=== PATIENT | male | born 1960 | race Caucasian/White ===

== ENCOUNTER 2022-04-05 17:38 | Inpatient (IN) | payer OTHER ==
[~2022-04-05] VITALS: Ht 165.1 cm; Wt 72.3 kg
--- NOTE | 2022-04-05 18:13 | Progress Note ---
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 He is in a clinical trial at [facility] involving immunotherapy, Pembrolizumab. He has been having fevers. No infectious source was identified during the initial workup in [place]. He was started on Cefepime and given a dose of Decadron. His blood pressure remained low at the time of my discussion with [place] [facility]. He will continue receiving IV fluids and will be started on Levophed if not improved following his 30 cc/kg fluid bolus. He has a port in place. TeleICU will be consulted. A baseline cortisol level was obtained and we will obtain an 8 am level. We will continue stress dose steroids if needed. There is a risk of both adrenal insufficiency and septic shock associated with Pembrolizumab. Admission to [facility] was unsuccessful due to no bed availability. He will be admitted to the ICU on IV fluids, antibiotics, +/- pressors and steroids. RUDY STREET MD Apr 05, 2022 18:13
[2022-04-05] MEDS ORDERED: ONDANSETRON 4 MG (ZOFRAN) ORAL DISSOLVE TAB PO PRN (20:00)
[2022-04-05] MEDS ORDERED: CEFEPIME INJECTION 1,000 MG in NS (IVPB) 50 ML IV SCH (20:00)
[2022-04-05] MEDS ORDERED: CALCIUM CARBONATE 500 MG (TUMS) TAB.CHEW PO PRN (20:00)
[2022-04-05] MEDS ORDERED: LACTULOSE SYRUP 10GM/15ML (ENULOSE) 30ML UDC PO PRN (20:00)
[2022-04-05] MEDS ORDERED: BISACODYL 10 MG SUPP (DULCOLAX) PR PRN (20:00)
[2022-04-05] MEDS ORDERED: ONDANSETRON 4 MG/2 ML (SDV) Z0FRAN IV PRN (20:00)
[2022-04-05] MEDS ORDERED: NS IV 500 ML 500 ML IV PRN (20:00)
[2022-04-05] MEDS ORDERED: diphenhydrAMINE 50 MG/ML INJ (BENADRYL) IVP PRN (20:00)
[2022-04-05] MEDS ORDERED: LACTATED RINGERS 1,000 ML IV ONE (20:00)
[2022-04-05] MEDS ORDERED: MELATONIN 3 MG TABLET PO PRN (20:00)
[2022-04-05] MEDS ORDERED: ACETAMINOPHEN 325 MG TABLET PO PRN (20:00)
[2022-04-05] MEDS ORDERED: MILK OF MAGNESIA 400 MG/5 ML 30 ML UDC PO PRN (20:00)
[2022-04-05] MEDS ORDERED: polyethylene glycoL POWDER 17 GM (MIRALAX) PACK PO PRN (20:00)
--- NOTE | 2022-04-05 20:07 | Tele-ICU Consult ---
History of Present Illness History of Present Illness Date Seen by Provider: Apr 05, 2022 Time Seen by Provider: 20:02 History of Present Illness eICU note 61 yo M, has squamous cell Ca tongue with lung metscurrently getting Pembrolizumab, Started on IVF @ 30 mL/kg, IV Cefepime, Decadron due to concerns of adrenal insuff. Came to OSH with hypotension, full code Allergies and Home Medications Allergies Coded Allergies: metformin (Verified Allergy, Unknown, 04/05/22) Review of Systems Constitutional: see HPI EENTM: see HPI Respiratory: see HPI Cardiovascular: see HPI Gastrointestinal: see HPI Genitourinary: see HPI Musculoskeletal: see HPI Skin: see HPI Psychiatric/Neurological: See HPI Focused Exam Height, Weight, BMI Height: '" Weight: lbs. oz. kg; BMI Method: Respiratory: Lungs Clear Exam Exam Patient acknowledged, consented, and participated in this virtual visit which was conducted using real time audio/video Vital Signs Date Time Temp Pulse Resp B/P (MAP) Pulse Ox O2 Delivery O2 Flow Rate FiO2 04/05/22 19:51 96 Trach Collar 28 Height & Weight Height: '" Weight: lbs. oz. kg; BMI Method: General Appearance: No Apparent Distress, WD/WN Neck: Other (has trach done, Sep 2021, site looks ok ) Respiratory: Lungs Clear Cardiovascular: Regular Rate, Rhythm Gastrointestinal: normal bowel sounds, non tender, soft Extremity: No Pedal Edema Neurologic/Psychiatric: Alert, Oriented x3 Assessment/Plan Assessment/Plan Responded to IVF with SBP 120's, awake and alert, not in resp distress for now continue abx, check cortisol level, not needing pressors at present time. full code Critical Care: Critically Ill Patient Time spent with patient (mins): 30 ALESSANDRO MANN MD Apr 05, 2022 20:07
[2022-04-05] MEDS: LACTATED RINGERS 1,000 ML IV SCH (20:13)
[2022-04-05 20:16] VITALS: BP 131/76
[2022-04-05] MEDS ORDERED: RT-ALBUTEROL/IPRATROPIUM 3 ML (DUONEB) VIAL INH PRN (20:30)
[2022-04-05] MEDS ORDERED: CEFEPIME 1 GM/10 ML (MAXIPIME) VIAL ONE (21:17)
[2022-04-05] MEDS ORDERED: NS (IVPB) 50 ML ONE (21:17)
[2022-04-05] MEDS: DOCUSATE SODIUM 100 MG (COLACE) CAP PO SCH (21:30)
[2022-04-05] MEDS: SENNOSIDES 8.6 MG (SENOKOT) TAB PO SCH (21:31)
[2022-04-05] MEDS ORDERED: CEFEPIME INJECTION 1,000 MG in NS (IVPB) 50 ML IV ONE (22:30)
[2022-04-06] MEDS: LACTATED RINGERS 1,000 ML IV SCH ×2 (04:36→14:23)
[2022-04-06 04:47] LABS: EOSINOPHILS % (AUTO) 0 % (0-10); LYMPHOCYTES # (AUTO) 0.4 10^3/uL (1.0-4.0); LYMPHOCYTES % (AUTO) 5 % (12-44); MEAN CORPUSCULAR VOLUME 92 fL (80-99)
[2022-04-06 04:49] LABS: BASOPHILS % (AUTO) 0 % (0-10); HEMATOCRIT 31 % (40-54); HEMOGLOBIN 10.7 g/dL (13.3-17.7); MEAN CORPUSCULAR HEMOGLOBIN 32 pg (25-34); MEAN CORPUSCULAR HGB CONC 35 g/dL (32-36); MEAN PLATELET VOLUME 10.7 fL (9.0-12.2); MONOCYTES # (AUTO) 0.3 10^3/uL (0.0-1.0); MONOCYTES % (AUTO) 4 % (0-12); NEUTROPHILS # (AUTO) 7.4 10^3/uL (1.8-7.8); NEUTROPHILS % (AUTO) 91 % (42-75); PLATELET COUNT 102 10^3/uL (130-400); WHITE BLOOD COUNT 8.1 10^3/uL (4.3-11.0)
[2022-04-06 04:59] LABS: ALBUMIN 3.2 GM/DL (3.2-4.5); POTASSIUM 4.2 MMOL/L (3.6-5.0)
[2022-04-06 05:00] LABS: CALCIUM 8.4 MG/DL (8.5-10.1)
[2022-04-06 05:03] LABS: BILIRUBIN,TOTAL 0.3 MG/DL (0.1-1.0)
[2022-04-06 05:05] LABS: CREATININE SERUM 0.72 MG/DL (0.60-1.30)
[2022-04-06 05:08] LABS: MAGNESIUM 1.9 MG/DL (1.6-2.4)
[2022-04-06] MEDS: POTASSIUM CL 10MEQ/50ML IVPB 50 ML IV SCH (05:09)
[2022-04-06] MEDS: KCL 20 MEQ TAB (K-DUR) PO SCH (05:09)
[2022-04-06] MEDS: MAGNESIUM 1 GM/100 ML IVPB 100 ML IV SCH (05:09)
[2022-04-06 05:14] LABS: BAND NEUTROPHILS 18 %; BASOPHILS % (MANUAL) 0 %; EOSINOPHILS % (MANUAL) 0 %; LYMPHOCYTES % (MANUAL) 4 %; MONOCYTES % (MANUAL) 3 %; NEUTROPHILS % (MANUAL) 74 %; REACTIVE LYMPHOCYTES 1 %; TOXIC GRANULATION/VACUOLAZATIO 1+
[2022-04-06 05:26] LABS: PHOSPHORUS 0.9 MG/DL (2.3-4.7)
[2022-04-06] MEDS: CEFEPIME INJECTION 1,000 MG in NS (IVPB) 50 ML IV SCH ×3 (06:42→18:10)
[2022-04-06] MEDS ORDERED: VANCOMYCIN INJECTION 0.1 MG in NS (IVPB) 250 ML IV SCH (07:15)
[2022-04-06] MEDS ORDERED: VANCOMYCIN 1500 MG/NS 500 ML IVPB IV SCH ×2 (08:00)
[2022-04-06] MEDS ORDERED: VANCOMYCIN 1500 MG/NS 500 ML IVPB IV NR ×2 (08:00)
[2022-04-06] MEDS: DOCUSATE SODIUM 100 MG (COLACE) CAP PO SCH ×2 (08:10→21:05)
[2022-04-06] MEDS: ENOXAPARIN 40 MG/0.4 ML (LOVENOX) SYR SC SCH (08:10)
[2022-04-06] MEDS: SENNOSIDES 8.6 MG (SENOKOT) TAB PO SCH ×2 (08:10→21:05)
[2022-04-06] MEDS ORDERED: SODIUM PHOSPHATE INJ 30 MM in NS (IVPB) 250 ML INJ ONE (09:00)
--- NOTE | 2022-04-06 09:53 | Physical Therapy Evaluation ---
PT Evaluation-General Medical Diagnosis Admission Date Apr 05, 2022 at 19:31 Medical Diagnosis: shock/hypotension Onset Date: Apr 05, 2022 Therapy Diagnosis Therapy Diagnosis: debiltiy/weakness Precautions Precautions/Isolations: Standard Precautions Referral Physician: Cammy Reason for Referral: Evaluation/Treatment Medical History Additional Medical History metastatic tongue cancer with mets to lung Current History transfer from OSH due to hypotension Reviewed History: Yes Social History Home: Single Level Prior Prior Level of Function SCALE: Activities may be completed with or without assistive devices. 9-Pcwdtodvyv-sjghyxj completes the activity by him/herself with no assistance from a helper. 5-Set-up or Clean-up Assistance-helper sets up or cleans up; patient completes activity. [place] assists only prior to or following the activity. 4-Supervision or Touching Assistance-helper provides verbal cues and/or touching/steadying and/or contact guard assistance as patient completes activity. Assistance may be provided throughout the activity or intermittently. 3-Partial/Moderate Assistance-helper does LESS THAN HALF the effort. Garwood li fts, holds or supports trunk or limbs, but provides less than half the effort. 2-Substantial/Maximal Assistance-helper does MORE THAN HALF the effort. [place] lifts or holds trunk or limbs and provides more than half the effort. 6-Saeyrleyy-odmxkb does ALL the effort. Patient does none of the effort to complete the activity. Or, the assistance of 2 or more helpers is required for the patient to complete the activity. If activity was not attempted, code reason: 7-Patient Refused. 9-Not Applicable-not attempted and the patient did not perform the activity before the current illness, exacerbation or injury. 10-Not Attempted due to Environmental Limitations-(lack of equipment, weather restraints, etc.). 88-Not Attempted due to Medical Conditions or Safety Concerns. Bed Mobility: 6 Transfers (B,C,W/C): 6 Gait: 6 Stairs: 6 Indoor Mobility (Ambulation): Independent Stairs: Independent Prior Devices Use: None PT Evaluation-Current Subjective Patient agrees to PT. Pain Numeric Pain Scale: 0-No Pain Location: No Pain Reported Objective Patient Orientation: Normal For Age Attachments: PEG Tube trach ROM/Strength ROM Lower Extremities bilateral LE WFL Strength Lower Extremities 5/5 grossly bilateral LE Integumentary/Posture Integumentary refer to nursing notes Bowel Incontinence: No Bladder Incontinence: No Posture WFL Neuromuscular (Tone, Coordination, Reflexes) grossly intact Sensory Vision: Wears Glasses Hearing: Functional Transfers Sit to Lying (QC): 6 Lying to Sitting/Side of Bed(Q: 6 Sit to Stand (QC): 6 Chair/Mlf-gu-Fufuz Xfer(QC): 6 Gait Mode of Locomotion: Walk Anticipated Mode of Locomotion: Walk Walk 10 feet (QC): 6 Walk 50 ft with 2 Turns(QC): 6 Walk 150 ft (QC): 6 Distance: 500' Gait Assistive Device: None Comments/Gait Description safe and functional with no deviation Balance Sitting Static: Normal Sitting Dynamic: Normal Standing Static: Normal Standing Dynamic: Normal Picking up an Object (QC): 6 Assessment/Needs 61 y.o. male, is at independent OF safely and does not require skilled PT. Rehab Potential: Fair PT Plan Treatment/Plan Treatment Plan: Discontinue PT, goals met Treatment Duration: Apr 06, 2022 Frequency: 1 time per week Estimated Hrs Per Day: .25 hour per day Patient and/or Family Agrees t: Yes Time/GCodes Time In: 746 Time Out: 800 Total Billed Treatment Time: 14 Total Billed Treatment 1 visit EVMod 14 min MARIO ALBERTO LYNN PT Apr 06, 2022 09:53
--- NOTE | 2022-04-06 09:58 | Tele-ICU Progress Note ---
Subjective Date Seen by a Provider: Apr 06, 2022 Time Seen by a Provider: 09:57 Subjective/Events-last exam (Tele-ICU Physician , Progress Note ) Available chart/ vitals / labs / Images reviewed Video assessment done using teleICU camera, rest of exam as per RN Discussed with RN Events overnight : Afebrile hemodynamically stable Respiratory - trach 28 I/O = Drips: lr 125 Pressors- no Consultants: Hospital course: A/P Hypotension -Infection source is not immediately obvious, PCT is high- PICC line ? , PNA ? 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 - s/p trach - on hymidification at night and RA day time - s/p PEG - as per patient : trying to eat solod foor - will keep TF and check with [facility] - might need speach eval Hyperglycemia - ? steroids related - follow Lines : Left PICC - chronic , (Central Line Necessity Reviewed) Mercedes: void OG: Nutrition: PEG Analgesia: Anxiety/ delirium VTE Prophylaxis: jayjay 40 Stress Ulcer Prophylaxis: po Plans in collaboration with bedside consultants and IM MDs. Discussed with RN to reach out if any questions or concerns A total of32 minutes of critical care time was devoted to this patient today, required to treat and/or prevent further deterioration of critical care condition ( as above ) . Sepsis Event Evaluation Height, Weight, BMI Height: '" Weight: lbs. oz. kg; 27.47 BMI Method: Exam Exam Patient acknowledged, consented, and participated in this virtual visit which was conducted using real time audio/video Vital Signs Date Time Temp Pulse Resp B/P (MAP) Pulse Ox O2 Delivery O2 Flow Rate FiO2 04/06/22 09:08 95 Room Air 04/06/22 09:00 50 21 89/50 96 Trach Collar 28.00 04/06/22 08:00 53 21 118/47 96 Trach Collar 28.00 04/06/22 07:45 Room Air 04/06/22 07:27 36.5 04/06/22 07:00 51 04/06/22 07:00 52 21 113/67 96 Trach Collar 28.00 04/06/22 06:00 45 21 100/63 95 Trach Collar 28.00 04/06/22 05:00 45 20 105/61 96 Trach Collar 28.00 04/06/22 04:00 43 19 90/60 96 Trach Collar 28.00 04/06/22 04:00 95 Trach Collar 28 04/06/22 03:43 36.2 04/06/22 03:00 46 19 97/62 97 Trach Collar 28.00 04/06/22 02:30 47 20 110/58 95 Trach Collar 28.00 04/06/22 01:00 48 23 100/56 97 Trach Collar 28.00 04/06/22 01:00 48 04/06/22 00:00 43 20 100/60 95 Trach Collar 28.00 04/05/22 23:59 95 Trach Collar 28 04/05/22 23:58 36.0 04/05/22 23:00 49 17 113/63 96 Trach Collar 28.00 04/05/22 22:00 49 17 100/70 91 Trach Collar 28.00 04/05/22 21:00 47 20 112/64 91 Trach Collar 28.00 04/05/22 20:45 49 22 113/68 91 Trach Collar 28.00 04/05/22 20:30 48 23 106/70 95 Trach Collar 28.00 04/05/22 20:16 59 96 04/05/22 20:15 52 10 109/68 98 Trach Collar 28.00 04/05/22 20:00 45 122/71 96 Trach Collar 28.00 04/05/22 20:00 96 Trach Collar 28 04/05/22 19:51 96 Trach Collar 28 04/05/22 19:45 36.3 54 116/65 93 Trach Collar 28.00 04/05/22 19:36 56 I & O 04/06/22 07:00 Intake Total 700 ml Output Total 1850 ml Balance -1150 ml Height & Weight Height: '" Weight: lbs. oz. kg; 27.47 BMI Method: General Appearance: No Apparent Distress, WD/WN Neck: Other (has trach done, Sep 2021, site looks ok ) Respiratory: Lungs Clear Cardiovascular: Regular Rate, Rhythm Gastrointestinal: normal bowel sounds, non tender, soft Extremity: No Pedal Edema Neurologic/Psychiatric: Alert, Oriented x3 Results Lab Laboratory Tests 04/06/22 04:40 Assessment/Plan Assessment/Plan 1 NATE BELTRAN MD Apr 06, 2022 09:58
[2022-04-06] MEDS ORDERED: VITA100033 PO (11:36)
[2022-04-06] MEDS ORDERED: LYSI500T37 PO (11:36)
[2022-04-06] MEDS ORDERED: NF-PILO5T PO (11:36)
[2022-04-06] MEDS ORDERED: PNT400TCR PO (11:36)
[2022-04-06] MEDS ORDERED: AMLO-250 PO (11:36)
[2022-04-06] MEDS ORDERED: ONDA8TAB13 PO (11:36)
[2022-04-06] MEDS ORDERED: GABA300C PO (11:36)
[2022-04-06] MEDS ORDERED: CINN500C2 PO (11:36)
[2022-04-06] MEDS ORDERED: FAMO40TA6 PO (11:36)
--- NOTE | 2022-04-06 11:42 | Occ Therapy Progress Note ---
Therapy Progress Note OT orders received and chart was reviewed. Patient reports he already walked 500 feet without any AD. Per PT note, this is accurate. Pt denies any concerns in self cares at this time, RN in agreement. OT will discharge. 1 visit Guerline Yanez OT Apr 06, 2022 11:42
--- NOTE | 2022-04-06 12:40 | ST Dysphagia Evaluation ---
Speech Evaluation-General Medical Diagnosis Shock/Hypotension Onset Date: Apr 05, 2022 Therapy Diagnosis Therapy Diagnosis: Suspected Pharyngeal Dysphagia Precautions Precautions: Aspiration Precautions/Isolations: Aspiration, Standard Precautions Referral Referring Physician: Dr. 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 The patient has undergone a chest exam, however, the results are not available at this time. Reviewed History: Yes Speech PLF/Current-Dysphagia Prior Level of Function The patient shared extensive oropharyngeal swallowing history with the clinician prior to the clinical bedside swallowing evaluation. The patient has completed "multiple swallow studies" with the department of otolaryngology at the [facility] throughout his treatment course. The patient is knowledgeable about the importance of dysphagia therapy throughout and following his radiation treatment and stated, "I haven't really done them in awhile but I do know if I don't use them, I lose them." The clinician encouraged a return to the consistent practice of dysphagia exercises. The patient stated he consumes "mostly regular things" with thin liquid and only uses his PEG tube for medication administration "and not all the time." The patient reports consistent coughing following thin liquids but denied s/s of suspected aspiration with puree or solid consistencies. The patient denied frequent chest infections, including pneumonia. The patient has a [place] Speaking Valve present which he located and placed on his tracheostomy at the clinician's request. The patient's SpO2% prior to PMV placement was 99%. Following placement and throughout the treatment session, the patient's SpO2% remained at 96%. The patient reported respiratory comfort with the PMV in place and demonstrated how to remove the device independently during periods of respiratory distress or discomfort. The clinician recommended the patient remove the device during periods of rest or sleep. The RN was made aware that the PMV was in place. The patient has a XLT, 6.0, uncuffed, tracheostomy in place. Subjective The patient was seated upright in the recliner, awake and alert upon entrance to his room by the clinician. The patient greeted the clinician appropriately and was agreeable to participation in the clinical bedside swallowing evaluation. Cognitive Status Patient Orientation: Person, Place, Time, Situation Oral Motor Skills Dentition: Natural Ability to Follow Directions: Excellent Oral Expression Ability: No Impairment Tracheostomy Type: Uncuffed (XLT, 6.0), Speaking Valve Other Contributing Factors: Radiation Therapy (Previous.), Chemotherapy (Previous.), PEG Tube Voice Voice Phonatory-Based Quality: Normal (with PMV in place.) Voice Pitch: Normal (with PMV in place.) Voice Loudness: Normal (with PMV in place.) Face Facial Symmetry: Symmetrical Oral-Facial Assessment Oral-Facial Dentition: Normal Labial Seal Description: Normal Smile: Normal Puff Cheeks: Normal Lingual Protrusion: Normal Lingual ROM: Normal Lingual Strength: Normal Volitional Dry Swallow: Yes Voluntary Cough: Yes Can Clear Throat Volitionally: Yes Productive Cough: Yes Productive Throat Clear: Yes Dysphagia Evaluation Consistencies Presented: Regular, Thin Liquid, [place] Thick Liquid, Pureed The patient did not display oral deficits to the swallowing mechanism at this time. Pharyngeal Phase: Clears Throat Laryngeal elevation was present to palpation and visualized through elevation of the tracheostomy. The patient was provided thin liquid via straw, nectar-thick liquid via straw, puree and solid consistencies. No s/s of suspected aspiration were demonstrated with puree or solid consistencies. Following each swallow the patient's vocal quality remained clear. Consistently following thin liquid and nectar-thick liquid, the patient demonstrated a rigorous cough or a delayed throat clear, red face, and watery eyes. The patient stated, "It just feels like something is stuck back that, like I need to clear it." Dietary Recommendations: NPO Liquid Recommendations: NPO Recommendations: - N.P.O. - Frequent and excellent oral care to reduce the transfer of oral bacteria to the lungs should aspiration of secretions occur. - Continue dysphagia exercises as recommended by the previous speech language pathologist. - Completion of a modified barium swallow evaluation to assess for the presence of aspiration with P.O. consistencies. (scheduled on this date at 1315). The results and recommendations were discussed with the patient and the patient's RN immediately following completion. The patient verbalized comprehension of the material and was agreeable with the plan of care. Dysphagia Evaluation Summary The patient demonstrated suspected pharyngeal dysphagia characterized by reduced airway protection in the presence of bolus material. Speech Short Term Goals Short Term Goals Short Term Goals 1. The patient and staff will follow safe swallowing strategies with 90% accuracy, independently. Time Frame-STG: Three Days. Speech Intermediate Goals Intermediate Goals 1. The patient will tolerate the least restrictive diet without s/s of suspected aspiration.. 2. The patient will participate in a modified barium swallow evaluation. Time Frame: One Week. Speech-Plan Treatment Plan Speech Therapy Treatment Plan: Continue Plan of Care Treatment Duration: Apr 13, 2022 Frequency: 3 times per week Estimated Hrs Per Day: .25 hour per day Rehab Potential: Fair Pt/Family Agrees to Plan: Yes Safety Risks/Education Teaching Recipient: Patient Teaching Methods: Discussion Response to Teaching: Verbalize Understanding Education Topics Provided: Results, Recommendations, Plan of Care Time Speech Therapy Time In: 11:08 Speech Therapy Time Out: 11:38 Total Billed Time: 30 Billed Treatment Time 1, ROSIE HODGSON [facility] Apr 06, 2022 12:40
--- NOTE | 2022-04-06 13:19 | Diagnostic Imaging Report ---
INDICATION: Hypoxia. No prior studies are available for comparison. Tracheostomy tube has tip above the reese. Left chest wall Port-A-Cath tip overlying SVC right atrial junction. Lungs are clear. No infiltrates are seen. There is no effusion or pneumothorax. IMPRESSION: No acute cardiopulmonary process is detected. Dictated by: Dictated on workstation # [id number]
--- NOTE | 2022-04-06 14:01 | ST Mod Barium Swallow ---
Speech Evaluation-General Medical Diagnosis Shock/Hypotension Onset Date: Apr 05, 2022 Therapy Diagnosis Therapy Diagnosis: Pharyngeal Dysphagia Precautions Precautions: Aspiration Precautions/Isolations: Aspiration, Standard Precautions Referral Referring Physician: Dr. Chawla Reason for Referral: Evaluation/Treatment Medical History Current History Please see the clinical bedside swallowing evaluation for extensive prior and current medical history information. Reviewed History: No Speech Mod Barium Swallow Prior Level of Function Please see the clinical bedside swallowing evaluation for extensive information regarding the patient's prior and current level of function. Oral Motor Skills Dentition Natural Dentures: Full Lingual Protrusion: Normal Lingual ROM: Normal Lingual Strength: Normal Volitional Dry Swallow: Yes Voluntary Cough: Yes Can Clear Throat Volitionally: Yes Textures-Lateral View Lateral View Food Presentation: Thin Liquid via Straw, Pureed Solids, Regular Solids Oral Phase Labial Closure: No Impairment (WFL) Bolus Formation Pooling L/R: No Impairment (WFL) Bolus Formation Placement: No Impairment (WFL) Mastication Rotary Chew: Mild Impairment (Due to xerostomia.) A/P Lingual Propulsion: No Impairment (WFL) Lingual Movement: No Impairment (WFL) The patient demonstrated appropriate retrieval of bolus items from the teaspoon and straw. No anterior bolus loss was appreciated. The patient formed each bolus appropriately and demonstrated timely posterior transfer. Premature spillage of bolus material was not present. The patient demonstrated mildly prolonged mastication of dry, solid consistencies secondary to xerostomia. With a thin liquid bolus addition, the patient was able to appropriately form a bolus and transfer the bolus posterior. Pharyngeal Phase Swallow Response: No Impairment (WFL) Base of Tongue: Mild Impairment The epiglottic structure appeared edematous with minimal protrusion. Laryngeal Elevation: Moderate Impairment Vallecular Residue: Mild Pharyngeal Wall Residue: Mild (Trace.) Piriform Sinus Residue: Mild (Trace.) Aspiration Observations: None The patient demonstrated mild to moderate pharyngeal impairments throughout the evaluation. Onset of the pharyngeal swallow occurred as the head of the bolus reached the angle of the ramus of the mandible and base of tongue. Hyo-laryngeal excursion and laryngeal elevation were moderately reduced. The epiglottic structure appeared edematous with limited protrusion, most likely secondary to the patient's history of radiation treatment. Inversion of the epiglottic structure was not appreciated. Closure of the laryngeal structure appeared seco ndary to edematous laryngeal and pharyngeal material surrounding the area. Trace laryngeal penetration occurred during the swallow with thin liquids, only. A minimal tracing of penetrated material remained on the laryngeal surface of the epiglottis following the swallow, however, was ejected prior to the subsequent swallow. No laryngeal penetration occurred with puree or solid consistencies. No aspiration occurred with any consistency tested throughout the swallow study. Mildly decreased base of tongue retraction and pharyngeal contractions were present resulted in mild vallecular residue and trace posterior pharyngeal wall and pyriform sinus residue. The cricopharyngeal region displayed mildly decreased relaxation secondary to reduced hyo-laryngeal excursion, however, complete clearance of bolus material through the area was achieved. To note, the patient displayed a throat clear following completion of the study, however, no material was visualized throughout the larynx or proximal trachea with fluoroscopic view. The patient's tracheostomy was visualized throughout the modified barium swallow study. Summary/Impressions The patient displayed mild to moderate oropharyngeal dysphagia characterized by prolonged mastication, decreased hyo-laryngeal excursion, reduced laryngeal elevation, absent epiglottic inversion, decreased base of tongue retraction, and reduced pharyngeal contraction. Trace laryngeal penetration occurred during the swallow with thin liquids, only. A minimal tracing of penetrated material remained on the laryngeal surface of the epiglottis following the swallow, however, was ejected prior to the subsequent swallow. No laryngeal penetration occurred with puree or solid consistencies. No aspiration occurred with any consistency tested throughout the swallow study. Recommendations: - Dysphagia three consistency diet with thin liquids, as tolerated. - Fully upright and alert for P.O. intake. - Small, single bites and sips. - Alternate bites and sips on a 1:1 ratio. - Provide additional sauces and gravies to aid with mastication and pharyngeal clearance. - Avoid problematic consistencies. - Crush medications and place in puree for administration. - Monitor for s/s of suspected aspiration with P.O. intake. If demonstrated, con tact speech pathology. The results and recommendations were provided to the patient and the patient's RN. Utilization of the PEG tube is deferred to the patient's primary team. Speech Short Term Goals Short Term Goals Short Term Goals 1. The patient and staff will follow safe swallowing strategies with 90% accuracy, independently. Time Frame-STG: Three Days. Speech Senior Care Goals Machine Veneer Repairer Goals 1. The patient will tolerate the least restrictive diet without s/s of suspected aspiration.. 2. The patient will participate in a modified barium swallow evaluation. Time Frame: One Week. Speech-Plan Treatment Plan Speech Therapy Treatment Plan: Continue Plan of Care Treatment Duration: Apr 13, 2022 Frequency: 2 times per week Estimated Hrs Per Day: .25 hour per day Rehab Potential: Fair Safety Risks/Education Teaching Recipient: Patient Teaching Methods: Discussion Response to Teaching: Verbalize Understanding Education Topics Provided: Results, Recommendations, Plan of Care Time Speech Therapy Time In: 13:15 Speech Therapy Time Out: 13:55 Total Billed Time: 40 Billed Treatment Time 1, MOD MELISSA Granados Apr 06, 2022 14:01
[2022-04-06] MEDS: inSUlin ASPART (NovoLOG) 1 UNIT/0.01 ML (CHARGE PER UNIT) SC SCH ×3 (14:45→21:05)
--- NOTE | 2022-04-06 16:17 | Diagnostic Imaging Report ---
Indication: Dysphasia. The procedure was performed in conjunction with speech pathology. Video fluoroscopy was performed during the swallowing of barium in multiple consistencies. Patient ingested thin barium as well as puree and solid consistency. 0.9 seconds of fluoroscopic time was utilized. Oral phase was unremarkable. There was normal epiglottic tilt and laryngeal elevation. No laryngeal penetration or aspiration was observed. IMPRESSION: Normal modified barium swallow. Dictated by: Dictated on workstation # [id number]
--- NOTE | 2022-04-06 19:26 | History & Physical-Hospitalist ---
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 He was scheduled to receive IV fluids at [place] and was found to be hypotensive and was sent to the ER. He reports feeling weak. He has had fevers. He received his last dose of IV immunotherapy less than one week ago. He denies shortness of breath. He has a chronic cough. He denies chest pain. He denies abdominal pain, nausea, vomiting, and diarrhea. He denies urinary symptoms. Source: patient Exam Limitations: no limitations Date Seen 04/06/22 Time Seen by a Provider: 09:45 Attending Physician PCP Admitting Physician: Shana Street MD Attending Physician: Shana Street MD Referring Physician Date of Admission Apr 05, 2022 at 19:31 Home Medications & Allergies Home Medications Reviewed patient Home Medication Reconciliation performed by pharmacy medication reconciliations certified technician and/or nursing. Patients Allergies have been reviewed. Allergies Allergies Coded Allergies metformin (Verified Allergy, Unknown, 04/05/22) Past Mtjsuis-Rwojnh-Kxicxb Hx Patient Social History Tobacco Use?: No Current Status Advance Directives: No Communicates: Verbally Primary Language: Kittitian Preferred Spoken Language: Kittitian Is interpretation needed?: No Family Medical History No Pertinent Family Hx Review of Systems Constitutional: fever, weakness EENTM: no symptoms reported Respiratory: cough Cardiovascular: no symptoms reported Gastrointestinal: no symptoms reported Genitourinary: no symptoms reported Physical Exam Physical Exam Vital Signs Vital Signs - First Documented 04/05/22 04/05/22 04/05/22 04/05/22 19:36 19:45 19:51 20:15 Temp 36.3 Pulse 56 Resp 10 B/P (MAP) 116/65 Pulse Ox 93 O2 Delivery Trach Collar O2 Flow Rate 28.00 FiO2 28 Capillary Refill : Height, Weight, BMI Height: '" Weight: lbs. oz. kg; 27.47 BMI Method: General Appearance: No Apparent Distress, WD/WN HEENT: PERRL/EOMI, Pharynx Normal Neck: Supple, Other (tracheostomy) Respiratory: Lungs Clear, Normal Breath Sounds, No Respiratory Distress Cardiovascular: Regular Rate, Rhythm, No Edema, No Murmur Gastrointestinal: Normal Bowel Sounds, Non Tender, Soft Extremity: Normal Inspection, No Pedal Edema Neurologic/Psychiatric: Alert, Oriented x3, Normal Mood/Affect Skin: Normal Color, Warm/Dry Results Results/Procedures Labs Laboratory Tests 04/06/22 04:40 Patient resulted labs reviewed. Imaging: Reviewed Imaging Report Assessment/Plan Admission Diagnosis Septic shock Admission Status: Inpatient Order (span 2 midnights) Reason for Inpatient Admission: IV antibiotics Assessment and Plan Septic shock Gram positive cocci bacteremia TeleICU consulted Hypotensive despite 30 cc/kg fluid bolus CXR and UA negative Blood cultures with gram positive cocci, pending Started on Cefepime Add Vancomycin IV fluids Repeat cultures 48 hours after appropriate antibiotics, Sunday morning Metastatic SCC to the lung Trach dependence Clinically significant, no acute management needs Hypophosphatemia Monitor and correct as needed HTN Holding BP meds, resume if needed DVT prophylaxis: Lovenox Critical Care Critically Ill Patient Diagnosis/Problems Diagnosis/Problems (1) Septic shock Status: Acute (2) Gram-positive cocci bacteremia Status: Acute (3) Metastatic squamous cell carcinoma to lung Status: Chronic Qualifiers: Laterality: unspecified laterality Qualified Codes: C78.00 - Secondary malignant neoplasm of unspecified lung (4) Immunotherapy Status: Chronic (5) Tracheostomy dependence Status: Chronic (6) Hypophosphatemia Status: Acute (7) HTN (hypertension) Status: Acute (8) GERD (gastroesophageal reflux disease) Status: Chronic Qualifiers: Esophagitis presence: without esophagitis Qualified Codes: K21.9 - Gastro- esophageal reflux disease without esophagitis SHANA STREET MD Apr 06, 2022 19:26
[2022-04-06] MEDS: VANCOMYCIN 1250 MG/NS 250 ML IVPB IV SCH ×2 (20:19)
[2022-04-06] MEDS: ANTACID SUSP 30 ML UDC (MYLANTA) PO PRN (23:56)
[2022-04-07] MEDS: CEFEPIME INJECTION 1,000 MG in NS (IVPB) 50 ML IV SCH ×2 (00:21→06:17)
[2022-04-07] MEDS: LACTATED RINGERS 1,000 ML IV SCH ×3 (00:21→13:34)
[2022-04-07 05:13] LABS: EOSINOPHILS % (AUTO) 0 % (0-10); HEMATOCRIT 31 % (40-54)
[2022-04-07 05:15] LABS: BASOPHILS % (AUTO) 0 % (0-10); HEMOGLOBIN 10.8 g/dL (13.3-17.7); LYMPHOCYTES # (AUTO) 0.4 10^3/uL (1.0-4.0); LYMPHOCYTES % (AUTO) 7 % (12-44); MEAN CORPUSCULAR HEMOGLOBIN 32 pg (25-34); MEAN CORPUSCULAR HGB CONC 34 g/dL (32-36); MEAN CORPUSCULAR VOLUME 92 fL (80-99); MEAN PLATELET VOLUME 10.9 fL (9.0-12.2); MONOCYTES # (AUTO) 0.3 10^3/uL (0.0-1.0); MONOCYTES % (AUTO) 6 % (0-12); NEUTROPHILS % (AUTO) 85 % (42-75); PLATELET COUNT 117 10^3/uL (130-400); WHITE BLOOD COUNT 5.8 10^3/uL (4.3-11.0)
[2022-04-07 05:31] LABS: PHOSPHORUS 1.9 MG/DL (2.3-4.7)
[2022-04-07 05:33] LABS: MAGNESIUM 1.7 MG/DL (1.6-2.4)
[2022-04-07 05:52] LABS: ALBUMIN 3.3 GM/DL (3.2-4.5); BILIRUBIN,TOTAL 0.3 MG/DL (0.1-1.0); CALCIUM 8.5 MG/DL (8.5-10.1); CREATININE SERUM 0.7 MG/DL (0.60-1.30); POTASSIUM 3.8 MMOL/L (3.6-5.0)
[2022-04-07] MEDS: MAGNESIUM 1 GM/100 ML IVPB 100 ML IV SCH (06:05)
[2022-04-07] MEDS: POTASSIUM CL 10MEQ/50ML IVPB 50 ML IV SCH (06:05)
[2022-04-07] MEDS: inSUlin ASPART (NovoLOG) 1 UNIT/0.01 ML (CHARGE PER UNIT) SC SCH ×4 (06:05→20:26)
[2022-04-07] MEDS: KCL 20 MEQ TAB (K-DUR) PO SCH (06:05)
[2022-04-07] MEDS: ENOXAPARIN 40 MG/0.4 ML (LOVENOX) SYR SC SCH (08:10)
[2022-04-07] MEDS: VANCOMYCIN 1250 MG/NS 250 ML IVPB IV SCH ×2 (08:10)
[2022-04-07] MEDS: DOCUSATE SODIUM 100 MG (COLACE) CAP PO SCH (08:10)
[2022-04-07] MEDS: SENNOSIDES 8.6 MG (SENOKOT) TAB PO SCH ×2 (08:10→20:20)
[2022-04-07] MEDS ORDERED: POT PHOS/NA PHOS (K-PHOS NEUTRAL) PO NR (08:45)
[2022-04-07] MEDS: HYDROCORTISONE 20 MG (CORTEF) TAB PO SCH ×2 (08:53→14:55)
--- NOTE | 2022-04-07 09:59 | Tele-ICU Progress Note ---
Subjective Date Seen by a Provider: Apr 07, 2022 Time Seen by a Provider: 09:59 Subjective/Events-last exam (Tele-ICU Physician , Progress Note ) Available chart/ vitals / labs / Images reviewed Video assessment done using teleICU camera, rest of exam as per RN Discussed with RN Events overnight : Afebrile hemodynamically stable Respiratory - trach 28 at night, RA now I/O =even Drips: lr 125 Pressors- no (04/05) 61yM Admit from OSH with hypotension, sepsis source ??, (pt on clinical trial @ [facility] w/immunotherapy for squam cell ca of tongue with lung mets). Chronic Trach 04/06 - off pressors , nl swallo 04/07 - started on steroids A/P Hypotension -Infection source is not immediately obvious, PCT is high- PICC line ? , PNA ? -Received crystalloids for hypotension and one dose decdron 04/05 ( was on pressors on other hospital ) -cortisollevel 2.7 - started on Cortef -Broad spectrum ABX- cefepime and vanco started on 04/05 - Marcio called with positive cx this am - will repeat cx here . - peripheral and line - cxr clear Bradicardia - sinus , chronic - follow Suspected adrenal insufficience - - cortisollevel 2.7 - started on Cortef Anemia - monitror s/p PEG - Normal modified barium swallow- resume PO squamous cell carcinoma of the tongue with metastasis to the lungs - in a clinical trial at [facility] involving immunotherapy, Pembrolizumab. - s/p trach - on hymidification at night and RA day time - s/p PEG - as per patient : trying to eat solid foor - will keep TF and check with [facility] - Normal modified barium swallow- resume PO Hyperglycemia - ? steroids related - follow Elev transaminases =?mild shock liver Lines : Left PICC - chronic , (Central Line Necessity Reviewed) Mercedes: void OG: Nutrition: PEG Analgesia: Anxiety/ delirium VTE Prophylaxis: jayjay 40 Stress Ulcer Prophylaxis: po Plans in collaboration with bedside consultants and IM MDs. Discussed with RN to reach out if any questions or concerns A total of 26 minutes of critical care time was devoted to this patient today, required to treat and/or prevent further deterioration of critical care condition ( as above ) . Sepsis Event Evaluation Height, Weight, BMI Height: '" Weight: lbs. oz. kg; 27.47 BMI Method: Exam Exam Patient acknowledged, consented, and participated in this virtual visit which wa s conducted using real time audio/video Vital Signs Date Time Temp Pulse Resp B/P (MAP) Pulse Ox O2 Delivery O2 Flow Rate FiO2 04/07/22 09:00 63 18 136/77 95 Trach Collar 28.00 04/07/22 08:00 65 18 94 Trach Collar 28.00 04/07/22 08:00 37.0 04/07/22 07:00 59 04/07/22 07:00 56 26 135/73 93 Trach Collar 28.00 04/07/22 06:00 56 27 125/66 93 Trach Collar 28.00 04/07/22 05:00 55 12 121/73 95 Trach Collar 28.00 04/07/22 04:00 Room Air 04/07/22 04:00 36.2 04/07/22 04:00 51 25 114/62 90 Trach Collar 28.00 04/07/22 02:50 95 Trach Collar 6.00 28 04/07/22 02:00 55 22 122/69 96 Trach Collar 28.00 04/07/22 01:00 53 04/07/22 01:00 53 23 130/71 97 Trach Collar 28.00 04/07/22 00:00 36.0 04/07/22 00:00 55 23 128/70 95 Trach Collar 28.00 04/06/22 23:59 Room Air 04/06/22 23:00 50 26 110/61 95 Trach Collar 28.00 04/06/22 22:00 52 24 119/66 96 Trach Collar 28.00 04/06/22 21:15 99 Room Air 04/06/22 21:00 55 11 125/101 93 Trach Collar 28.00 04/06/22 20:00 44 11 140/77 93 Trach Collar 28.00 04/06/22 20:00 Room Air 04/06/22 20:00 36.3 04/06/22 19:00 53 19 144/69 98 Trach Collar 28.00 04/06/22 19:00 53 04/06/22 18:00 50 15 153/74 94 Trach Collar 28.00 04/06/22 17:00 49 24 150/82 99 Trach Collar 28.00 04/06/22 16:00 48 19 137/74 95 Trach Collar 28.00 04/06/22 15:59 Room Air 04/06/22 15:00 50 20 122/68 95 Trach Collar 28.00 04/06/22 14:00 50 18 133/67 98 Trach Collar 28.00 04/06/22 13:00 53 04/06/22 13:00 49 7 126/76 91 Trach Collar 28.00 04/06/22 12:00 Room Air 04/06/22 12:00 54 20 138/76 95 Trach Collar 28.00 04/06/22 11:51 36.4 04/06/22 11:00 53 12 121/57 97 Trach Collar 28.00 04/06/22 10:00 51 6 136/60 96 Trach Collar 28.00 I & O 04/07/22 07:00 Intake Total 2985 ml Output Total 2700 ml Balance 285 ml Height & Weight Height: '" Weight: lbs. oz. kg; 27.47 BMI Method: General Appearance: No Apparent Distress, WD/WN HEENT: PERRL/EOMI, Pharynx Normal Neck: Supple, Other (tracheostomy) Respiratory: Lungs Clear, Normal Breath Sounds, No Respiratory Distress Cardiovascular: Regular Rate, Rhythm, No Edema, No Murmur Gastrointestinal: normal bowel sounds, non tender, soft Extremity: Normal Inspection, No Pedal Edema Neurologic/Psychiatric: Alert, Oriented x3, Normal Mood/Affect Skin: Normal Color, Warm/Dry Results Lab Laboratory Tests 04/06/22 04:40 04/07/22 05:00 Assessment/Plan Assessment/Plan 1 NATE BELTRAN MD Apr 07, 2022 09:59
[2022-04-07] MEDS: ceFAZolin 2 GM IV Premixed 50 ML IV SCH ×2 (13:18→20:20)
[2022-04-07] MEDS: ANTACID SUSP 30 ML UDC (MYLANTA) PO PRN ×2 (13:44→20:20)
[2022-04-07 16:44] VITALS: BP 108/56
--- NOTE | 2022-04-07 16:49 | Progress Note - Hospitalist ---
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 He was scheduled to receive IV fluids at [place] and was found to be hypotensive and was sent to the ER. He reports feeling weak. He has had fevers. He received his last dose of IV immunotherapy less than one week ago. He denies shortness of breath. He has a chronic cough. He denies chest pain. He denies abdominal pain, nausea, vomiting, and diarrhea. He denies urinary symptoms. Subjective/Events-last exam He is feeling better. He denies pain. He denies shortness of breath. He has no complaints. Objective Exam Vital Signs Vital Signs Date Time Temp Pulse Resp B/P (MAP) Pulse Ox O2 Delivery O2 Flow Rate FiO2 04/07/22 13:38 37.5 62 18 114/58 95 Room Air 04/07/22 12:00 28.00 04/07/22 02:50 28 Capillary Refill : General Appearance: No Apparent Distress, WD/WN Respiratory: Lungs Clear, No Respiratory Distress, Other (left chest port) Cardiovascular: Regular Rate, Rhythm, No Murmur Gastrointestinal: Normal Bowel Sounds, Non Tender, Soft Extremity: Normal Inspection, No Pedal Edema Neurologic/Psychiatric: Alert, Normal Mood/Affect Skin: Normal Color, Warm/Dry Results/Procedures Lab Laboratory Tests 04/07/22 05:00 Patient resulted labs reviewed. Imaging: Reviewed Imaging Report Assessment/Plan Assessment and Plan Assess & Plan/Chief Complaint MSSA bacteremia TeleICU following Blood cultures with MSSA Repeat cultures Echo without evidence of vegetations Transition to Ancef Adrenal insufficiency Cortisol level low Begin Hydrocortisone Metastatic SCC to the lung Trach dependence Clinically significant, no acute management needs Hypophosphatemia Monitor and correct as needed HTN Holding BP meds, resume if needed DVT prophylaxis: Lovenox Septic shock, resolved Critical Care Critically Ill Patient Diagnosis/Problems Diagnosis/Problems (1) Septic shock Status: Resolved Resolution Date/Time: 04/07/22 @ 16:47 (2) MSSA bacteremia Status: Acute (3) Adrenal insufficiency due to cancer therapy Status: Acute (4) 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
[2022-04-07] MEDS ORDERED: TROUGH ORDER-PHARMACY XX NR (19:00)
[2022-04-07] MEDS: DOCUSATE SODIUM 10 MG/ML 10 ML UDC (COLACE) PEG SCH (20:20)
[2022-04-07 20:42] VITALS: BP 108/57
[2022-04-08] VITALS (8 sets, daily range): BP systolic 110–151; BP diastolic 57–73
[2022-04-08] MEDS: ceFAZolin 2 GM IV Premixed 50 ML IV SCH ×3 (04:19→20:45)
[2022-04-08] MEDS: LACTATED RINGERS 1,000 ML IV SCH ×3 (04:20→21:50)
[2022-04-08 05:14] LABS: EOSINOPHILS % (AUTO) 0 % (0-10); HEMOGLOBIN 10.3 g/dL (13.3-17.7); MEAN CORPUSCULAR VOLUME 91 fL (80-99); MONOCYTES % (AUTO) 14 % (0-12)
[2022-04-08 05:16] LABS: BASOPHILS % (AUTO) 0 % (0-10); HEMATOCRIT 30 % (40-54); LYMPHOCYTES # (AUTO) 0.5 10^3/uL (1.0-4.0); LYMPHOCYTES % (AUTO) 16 % (12-44); MEAN CORPUSCULAR HEMOGLOBIN 31 pg (25-34); MEAN CORPUSCULAR HGB CONC 35 g/dL (32-36); MEAN PLATELET VOLUME 10.8 fL (9.0-12.2); MONOCYTES # (AUTO) 0.4 10^3/uL (0.0-1.0); NEUTROPHILS # (AUTO) 1.9 10^3/uL (1.8-7.8); NEUTROPHILS % (AUTO) 65 % (42-75); PLATELET COUNT 131 10^3/uL (130-400); WHITE BLOOD COUNT 2.9 10^3/uL (4.3-11.0)
[2022-04-08 05:25] LABS: ALBUMIN 3.3 GM/DL (3.2-4.5); POTASSIUM 3.3 MMOL/L (3.6-5.0)
[2022-04-08 05:27] LABS: CALCIUM 8.1 MG/DL (8.5-10.1)
[2022-04-08 05:28] LABS: TOTAL PROTEIN 6.1 GM/DL (6.4-8.2)
[2022-04-08 05:29] LABS: BILIRUBIN,TOTAL 0.4 MG/DL (0.1-1.0)
[2022-04-08 05:31] LABS: CREATININE SERUM 0.74 MG/DL (0.60-1.30)
[2022-04-08 05:32] LABS: PHOSPHORUS 2.2 MG/DL (2.3-4.7)
[2022-04-08 05:34] LABS: MAGNESIUM 1.9 MG/DL (1.6-2.4)
[2022-04-08] MEDS: KCL 20 MEQ TAB (K-DUR) PO SCH (05:43)
[2022-04-08] MEDS: MAGNESIUM 1 GM/100 ML IVPB 100 ML IV SCH (05:43)
[2022-04-08] MEDS: inSUlin ASPART (NovoLOG) 1 UNIT/0.01 ML (CHARGE PER UNIT) SC SCH ×4 (05:43→20:46)
[2022-04-08] MEDS: POTASSIUM CL 10MEQ/50ML IVPB 50 ML IV SCH ×5 (05:43→10:23)
[2022-04-08] MEDS: SENNOSIDES 8.6 MG (SENOKOT) TAB PO SCH ×2 (07:51→20:45)
[2022-04-08] MEDS: ENOXAPARIN 40 MG/0.4 ML (LOVENOX) SYR SC SCH (07:51)
[2022-04-08] MEDS: DOCUSATE SODIUM 10 MG/ML 10 ML UDC (COLACE) PEG SCH ×2 (07:51→20:45)
[2022-04-08] MEDS: HYDROCORTISONE 20 MG (CORTEF) TAB PO SCH ×2 (08:20→15:34)
[2022-04-08] MEDS ORDERED: POT PHOS/NA PHOS (K-PHOS NEUTRAL) PO ONE (08:45)
--- NOTE | 2022-04-08 15:18 | Progress Note - Hospitalist ---
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 He was scheduled to receive IV fluids at [place] and was found to be hypotensive and was sent to the ER. He reports feeling weak. He has had fevers. He received his last dose of IV immunotherapy less than one week ago. He denies shortness of breath. He has a chronic cough. He denies chest pain. He denies abdominal pain, nausea, vomiting, and diarrhea. He denies urinary symptoms. Subjective/Events-last exam He is feeling about the same. He denies pain. He is not short of breath. He is not excited about staying in the hospital over the weekend. Objective Exam Vital Signs Vital Signs Date Time Temp Pulse Resp B/P (MAP) Pulse Ox O2 Delivery O2 Flow Rate FiO2 04/08/22 11:50 36.7 54 97 21 04/08/22 11:38 Trach Collar 04/08/22 11:33 16 151/67 (95) 04/07/22 22:10 6.00 Capillary Refill : General Appearance: No Apparent Distress, WD/WN Neck: Other (tracheostomy) Respiratory: Lungs Clear, Normal Breath Sounds, No Respiratory Distress Cardiovascular: Regular Rate, Rhythm, No Edema, No Murmur Gastrointestinal: Normal Bowel Sounds, Non Tender, Soft Extremity: Normal Inspection, No Pedal Edema Neurologic/Psychiatric: Alert, Normal Mood/Affect Skin: Normal Color, Warm/Dry Results/Procedures Lab Laboratory Tests 04/08/22 05:00 Patient resulted labs reviewed. Imaging: Reviewed Imaging Report Assessment/Plan Assessment and Plan Assess & Plan/Chief Complaint MSSA bacteremia Blood cultures with MSSA Repeat cultures positive for Staph Echo without evidence of vegetations Continue Ancef Repeat blood cultures tomorrow morning If bacteremia persists, will likely need port removed Adrenal insufficiency Cortisol level low Continue Hydrocortisone Elevated LFTs Shock liver Likely due to shock Monitor Metastatic SCC to the lung Trach dependence Clinically significant, no acute management needs Hypophosphatemia Monitor and correct as needed HTN Holding BP meds, resume if needed DVT prophylaxis: Lovenox Septic shock, resolved Diagnosis/Problems Diagnosis/Problems (1) Septic shock Status: Resolved Resolution Date/Time: 04/07/22 @ 16:47 (2) MSSA bacteremia Status: Acute (3) Adrenal insufficiency due to cancer therapy Status: Acute (4) Metastatic squamous cell carcinoma to lung Status: Chronic Qualifiers: Laterality: unspecified laterality Qualified Codes: C78.00 - Secondary malignant neoplasm of unspecified lung (5) Immunotherapy Status: Chronic (6) Tracheostomy dependence Status: Chronic (7) Hypophosphatemia Status: Acute (8) HTN (hypertension) Status: Acute (9) GERD (gastroesophageal reflux disease) Status: Chronic Qualifiers: Esophagitis presence: without esophagitis Qualified Codes: K21.9 - Gastro- esophageal reflux disease without esophagitis RUDY STREET MD Apr 08, 2022 15:18
[2022-04-08] MEDS: diphenhydrAMINE 25 MG TAB (BENADRYL) PO PRN (22:34)
[2022-04-09 03:44] VITALS: BP 103/57
[2022-04-09] MEDS: diphenhydrAMINE 25 MG TAB (BENADRYL) PO PRN ×2 (04:54→20:15)
[2022-04-09] MEDS: ceFAZolin 2 GM IV Premixed 50 ML IV SCH ×3 (04:55→20:15)
[2022-04-09 04:58] LABS: EOSINOPHILS % (AUTO) 0 % (0-10); MEAN CORPUSCULAR VOLUME 91 fL (80-99); PLATELET COUNT 133 10^3/uL (130-400)
[2022-04-09 05:00] LABS: BASOPHILS % (AUTO) 0 % (0-10); HEMATOCRIT 30 % (40-54); HEMOGLOBIN 10.2 g/dL (13.3-17.7); LYMPHOCYTES # (AUTO) 0.7 10^3/uL (1.0-4.0); LYMPHOCYTES % (AUTO) 23 % (12-44); MEAN CORPUSCULAR HEMOGLOBIN 31 pg (25-34); MEAN CORPUSCULAR HGB CONC 34 g/dL (32-36); MONOCYTES # (AUTO) 0.4 10^3/uL (0.0-1.0); MONOCYTES % (AUTO) 11 % (0-12); NEUTROPHILS # (AUTO) 1.8 10^3/uL (1.8-7.8); NEUTROPHILS % (AUTO) 58 % (42-75); WHITE BLOOD COUNT 3.2 10^3/uL (4.3-11.0)
[2022-04-09 05:14] LABS: ALBUMIN 3.1 GM/DL (3.2-4.5)
[2022-04-09 05:15] LABS: POTASSIUM 3.7 MMOL/L (3.6-5.0)
[2022-04-09 05:16] LABS: CALCIUM 8.2 MG/DL (8.5-10.1)
[2022-04-09 05:17] LABS: TOTAL PROTEIN 5.6 GM/DL (6.4-8.2)
[2022-04-09 05:19] LABS: BILIRUBIN,TOTAL 0.3 MG/DL (0.1-1.0); PHOSPHORUS 3.1 MG/DL (2.3-4.7)
[2022-04-09 05:21] LABS: CREATININE SERUM 0.68 MG/DL (0.60-1.30); MAGNESIUM 1.8 MG/DL (1.6-2.4)
[2022-04-09] MEDS: POTASSIUM CL 10MEQ/50ML IVPB 50 ML IV SCH (05:28)
[2022-04-09] MEDS: MAGNESIUM 1 GM/100 ML IVPB 100 ML IV SCH (05:29)
[2022-04-09] MEDS: KCL 20 MEQ TAB (K-DUR) PO SCH (05:30)
[2022-04-09] MEDS: inSUlin ASPART (NovoLOG) 1 UNIT/0.01 ML (CHARGE PER UNIT) SC SCH ×4 (05:30→20:16)
[2022-04-09 07:25] VITALS: BP 112/57
[2022-04-09] MEDS: ENOXAPARIN 40 MG/0.4 ML (LOVENOX) SYR SC SCH (07:46)
[2022-04-09] MEDS: DOCUSATE SODIUM 10 MG/ML 10 ML UDC (COLACE) PEG SCH ×2 (07:46→20:16)
[2022-04-09] MEDS: SENNOSIDES 8.6 MG (SENOKOT) TAB PO SCH ×2 (07:46→20:15)
[2022-04-09] MEDS: HYDROCORTISONE 20 MG (CORTEF) TAB PO SCH ×2 (07:47→14:05)
--- NOTE | 2022-04-09 11:05 | Progress Note - Hospitalist ---
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 He was scheduled to receive IV fluids at [place] and was found to be hypotensive and was sent to the ER. He reports feeling weak. He has had fevers. He received his last dose of IV immunotherapy less than one week ago. He denies shortness of breath. He has a chronic cough. He denies chest pain. He denies abdominal pain, nausea, vomiting, and diarrhea. He denies urinary symptoms. Subjective/Events-last exam He is feeling about the same. He did not sleep well last night. He denies pain. Objective Exam Vital Signs Vital Signs Date Time Temp Pulse Resp B/P (MAP) Pulse Ox O2 Delivery O2 Flow Rate FiO2 04/09/22 09:35 93 Trach Collar 0.00 04/09/22 07:25 36.8 45 16 112/57 (75) 04/08/22 11:50 21 Capillary Refill : General Appearance: No Apparent Distress, WD/WN Respiratory: Lungs Clear, No Respiratory Distress Cardiovascular: Regular Rate, Rhythm, No Murmur Gastrointestinal: Normal Bowel Sounds, Soft Extremity: Normal Inspection, No Pedal Edema Neurologic/Psychiatric: Alert, Normal Mood/Affect Skin: Normal Color, Warm/Dry Results/Procedures Lab Laboratory Tests 04/09/22 04:45 Patient resulted labs reviewed. Imaging: Reviewed Imaging Report Assessment/Plan Assessment and Plan Assess & Plan/Chief Complaint MSSA bacteremia Blood cultures with MSSA Repeat cultures positive for Staph Echo without evidence of vegetations Continue Ancef Repeat blood cultures this morning pending If bacteremia persists, will likely need port removed Adrenal insufficiency Cortisol level low Continue Hydrocortisone Elevated LFTs Shock liver Likely due to shock Hepatitis panel pending Monitor Metastatic SCC to the lung Trach dependence Clinically significant, no acute management needs Hypophosphatemia Monitor and correct as needed HTN Holding BP meds, resume if needed DVT prophylaxis: Lovenox Septic shock, resolved Diagnosis/Problems Diagnosis/Problems (1) Septic shock Status: Resolved Resolution Date/Time: 04/07/22 @ 16:47 (2) MSSA bacteremia Status: Acute (3) Adrenal insufficiency due to cancer therapy Status: Acute (4) Metastatic squamous cell carcinoma to lung Status: Chronic Qualifiers: Laterality: unspecified laterality Qualified Codes: C78.00 - Secondary malignant neoplasm of unspecified lung (5) Immunotherapy Status: Chronic (6) Tracheostomy dependence Status: Chronic (7) Hypophosphatemia Status: Acute (8) HTN (hypertension) Status: Acute (9) GERD (gastroesophageal reflux disease) Status: Chronic Qualifiers: Esophagitis presence: without esophagitis Qualified Codes: K21.9 - Gastro- esophageal reflux disease without esophagitis RUDY STREET MD Apr 09, 2022 11:05
[2022-04-09 11:16] VITALS: BP 104/55
[2022-04-09] MEDS: LACTATED RINGERS 1,000 ML IV SCH (12:15)
[2022-04-09 16:05] VITALS: BP 123/84
[2022-04-09 19:27] VITALS: BP 135/77
[2022-04-10 00:12] VITALS: BP 119/58
[2022-04-10] MEDS: diphenhydrAMINE 25 MG TAB (BENADRYL) PO PRN ×2 (03:17→20:11)
[2022-04-10] MEDS: LACTATED RINGERS 1,000 ML IV SCH ×2 (03:18→20:07)
[2022-04-10 03:25] VITALS: BP 118/57
[2022-04-10] MEDS: ceFAZolin 2 GM IV Premixed 50 ML IV SCH (04:44)
[2022-04-10 04:54] LABS: BASOPHILS % (AUTO) 1 % (0-10); EOSINOPHILS % (AUTO) 1 % (0-10); HEMATOCRIT 31 % (40-54); HEMOGLOBIN 10.6 g/dL (13.3-17.7); LYMPHOCYTES # (AUTO) 1.6 10^3/uL (1.0-4.0); LYMPHOCYTES % (AUTO) 47 % (12-44); MEAN CORPUSCULAR HEMOGLOBIN 31 pg (25-34); MEAN CORPUSCULAR HGB CONC 34 g/dL (32-36); MEAN CORPUSCULAR VOLUME 92 fL (80-99); MEAN PLATELET VOLUME 10.6 fL (9.0-12.2); MONOCYTES # (AUTO) 0.4 10^3/uL (0.0-1.0); MONOCYTES % (AUTO) 13 % (0-12); NEUTROPHILS % (AUTO) 29 % (42-75); PLATELET COUNT 154 10^3/uL (130-400); WHITE BLOOD COUNT 3.4 10^3/uL (4.3-11.0)
[2022-04-10 05:15] LABS: ALBUMIN 3.1 GM/DL (3.2-4.5)
[2022-04-10 05:16] LABS: POTASSIUM 3.4 MMOL/L (3.6-5.0)
[2022-04-10 05:17] LABS: CALCIUM 8.3 MG/DL (8.5-10.1)
[2022-04-10 05:18] LABS: TOTAL PROTEIN 5.7 GM/DL (6.4-8.2)
[2022-04-10 05:20] LABS: BILIRUBIN,TOTAL 0.4 MG/DL (0.1-1.0)
[2022-04-10 05:22] LABS: CREATININE SERUM 0.64 MG/DL (0.60-1.30); PHOSPHORUS 2.7 MG/DL (2.3-4.7)
[2022-04-10 05:24] LABS: MAGNESIUM 1.7 MG/DL (1.6-2.4)
[2022-04-10] MEDS: KCL 20 MEQ TAB (K-DUR) PO SCH (05:39)
[2022-04-10] MEDS: POTASSIUM CL 10MEQ/50ML IVPB 50 ML IV SCH ×3 (05:39→07:13)
[2022-04-10] MEDS: MAGNESIUM 1 GM/100 ML IVPB 100 ML IV SCH ×3 (05:39→07:14)
[2022-04-10] MEDS: inSUlin ASPART (NovoLOG) 1 UNIT/0.01 ML (CHARGE PER UNIT) SC SCH (05:56)
[2022-04-10 08:24] VITALS: BP 114/62
--- NOTE | 2022-04-10 08:48 | Progress Note - Hospitalist ---
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 He was scheduled to receive IV fluids at [place] and was found to be hypotensive and was sent to the ER. He reports feeling weak. He has had fevers. He received his last dose of IV immunotherapy less than one week ago. He denies shortness of breath. He has a chronic cough. He denies chest pain. He denies abdominal pain, nausea, vomiting, and diarrhea. He denies urinary symptoms. Subjective/Events-last exam Pt reports feeling ok. Would like to go home. Discussed plan for pending culture results and potential need for port removal if still positive. He is in agreement with plan. Objective Exam Vital Signs Vital Signs Date Time Temp Pulse Resp B/P (MAP) Pulse Ox O2 Delivery O2 Flow Rate FiO2 04/10/22 08:24 37.0 44 18 114/62 (79) 93 Room Air 04/09/22 18:46 0.00 04/08/22 11:50 21 Capillary Refill : General Appearance: No Apparent Distress, Chronically ill Neck: Other (trach) Respiratory: Lungs Clear, No Respiratory Distress Cardiovascular: Regular Rate, Rhythm, No Murmur Neurologic/Psychiatric: Alert, Oriented x3 Results/Procedures Lab Laboratory Tests 04/10/22 04:35 Patient resulted labs reviewed. Imaging: Reviewed Imaging Report Assessment/Plan Assessment and Plan Assess & Plan/Chief Complaint MSSA bacteremia Blood cultures with MSSA Repeat cultures positive for Staph still so cultures redrawn yesterday 04/09- those are pending Echo without evidence of vegetations Continue Ancef If bacteremia persists, will likely need port removed Adrenal insufficiency Cortisol level low Continue Hydrocortisone Elevated LFTs Shock liver trending down Hepatitis panel pending Metastatic SCC to the lung Trach dependence Clinically significant, no acute management needs Hypophosphatemia Monitor and correct as needed HTN Holding BP meds, resume if needed Bradycardia Has been stanle but add tele DVT prophylaxis: EKTA Nguyễn MD Apr 10, 2022 08:48
[2022-04-10] MEDS: SENNOSIDES 8.6 MG (SENOKOT) TAB PO SCH ×2 (09:06→20:11)
[2022-04-10] MEDS: HYDROCORTISONE 20 MG (CORTEF) TAB PO SCH ×2 (09:06→14:51)
[2022-04-10] MEDS: ENOXAPARIN 40 MG/0.4 ML (LOVENOX) SYR SC SCH (09:08)
[2022-04-10] MEDS: DOCUSATE SODIUM 10 MG/ML 10 ML UDC (COLACE) PEG SCH ×2 (09:08→20:10)
[2022-04-10 11:46] VITALS: BP 102/65
[2022-04-10] MEDS ORDERED: ceFAZolin INJECTION 2,000 MG in NS (IVPB) 50 ML IV SCH (13:00)
[2022-04-10] MEDS ORDERED: ceFAZolin INJECTION 2,000 MG VIAL IV SCH (13:00)
[2022-04-10] MEDS ORDERED: NS (IVPB) 50 ML ONE (13:18)
[2022-04-10] MEDS: ceFAZolin INJECTION 2,000 MG in NS (IVPB) 50 ML IV SCH ×2 (13:21→20:10)
[2022-04-10 13:51] LABS: HEPATITIS C ANTIBODY C Non-Reactive (Non-Reactive)
[2022-04-10 17:00] VITALS: BP 126/62
[2022-04-10 20:52] VITALS: BP 114/65
[2022-04-11] VITALS (7 sets, daily range): BP systolic 115–146; BP diastolic 63–70
[2022-04-11] MEDS: ceFAZolin INJECTION 2,000 MG in NS (IVPB) 50 ML IV SCH ×3 (04:58→20:47)
[2022-04-11 05:41] LABS: BASOPHILS % (AUTO) 1 % (0-10); EOSINOPHILS % (AUTO) 1 % (0-10); HEMATOCRIT 33 % (40-54); LYMPHOCYTES # (AUTO) 2.9 10^3/uL (1.0-4.0); LYMPHOCYTES % (AUTO) 63 % (12-44); MEAN CORPUSCULAR HEMOGLOBIN 31 pg (25-34); MEAN CORPUSCULAR HGB CONC 34 g/dL (32-36); MEAN CORPUSCULAR VOLUME 92 fL (80-99); MEAN PLATELET VOLUME 11.1 fL (9.0-12.2); MONOCYTES # (AUTO) 0.4 10^3/uL (0.0-1.0); MONOCYTES % (AUTO) 9 % (0-12); NEUTROPHILS # (AUTO) 0.9 10^3/uL (1.8-7.8); NEUTROPHILS % (AUTO) 20 % (42-75); PLATELET COUNT 181 10^3/uL (130-400); WHITE BLOOD COUNT 4.6 10^3/uL (4.3-11.0)
[2022-04-11 05:52] LABS: ALBUMIN 3.2 GM/DL (3.2-4.5)
[2022-04-11 05:53] LABS: POTASSIUM 3.7 MMOL/L (3.6-5.0)
[2022-04-11 05:54] LABS: CALCIUM 8.5 MG/DL (8.5-10.1)
[2022-04-11 05:57] LABS: BILIRUBIN,TOTAL 0.4 MG/DL (0.1-1.0)
[2022-04-11 05:58] LABS: PHOSPHORUS 2.5 MG/DL (2.3-4.7)
[2022-04-11 05:59] LABS: CREATININE SERUM 0.59 MG/DL (0.60-1.30)
[2022-04-11 06:01] LABS: MAGNESIUM 1.9 MG/DL (1.6-2.4)
[2022-04-11] MEDS: KCL 20 MEQ TAB (K-DUR) PO SCH (07:58)
[2022-04-11] MEDS: MAGNESIUM 1 GM/100 ML IVPB 100 ML IV SCH (07:58)
[2022-04-11] MEDS: POTASSIUM CL 10MEQ/50ML IVPB 50 ML IV SCH (07:58)
--- NOTE | 2022-04-11 09:24 | Progress Note - Hospitalist ---
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 He was scheduled to receive IV fluids at [place] and was found to be hypotensive and was sent to the ER. He reports feeling weak. He has had fevers. He received his last dose of IV immunotherapy less than one week ago. He denies shortness of breath. He has a chronic cough. He denies chest pain. He denies abdominal pain, nausea, vomiting, and diarrhea. He denies urinary symptoms. Subjective/Events-last exam Patient reports feeling well has no complaints. He is hopeful for discharge. We discussed his persistently positive blood cultures. Discussed options for treatment and my recommendation for port removal he is in agreement. Objective Exam Vital Signs Vital Signs Date Time Temp Pulse Resp B/P (MAP) Pulse Ox O2 Delivery O2 Flow Rate FiO2 04/11/22 07:40 37.2 40 18 121/70 (87) 94 Room Air 04/11/22 04:10 3.00 04/08/22 11:50 21 Capillary Refill : General Appearance: No Apparent Distress, Chronically ill Neck: Other (trach) Respiratory: Lungs Clear, No Respiratory Distress Cardiovascular: Regular Rate, Rhythm, No Murmur Neurologic/Psychiatric: Alert, Oriented x3 Results/Procedures Lab Laboratory Tests 04/11/22 05:00 Patient resulted labs reviewed. Imaging: Reviewed Imaging Report Assessment/Plan Assessment and Plan Assess & Plan/Chief Complaint MSSA bacteremia Blood cultures with MSSA Repeat cultures positive still from port with GPC, continue IV abx Surgery consulted for port removal Discussed with Dr Martinez and plans for removal tomorrow Hold lovenox, NPO after midnight Echo without evidence of vegetations Continue Ancef Bradycardia Got as low as 30s overnight tele Cardiology consulted, discussed with Dr Ramierz who recommends monitoring at this point due to bacteremia but will see in consult Adrenal insufficiency Cortisol level low Continue Hydrocortisone Elevated LFTs Shock liver Continues to improve Hepatitis panel negative Metastatic SCC to the lung Trach dependence Clinically significant, no acute management needs HTN Holding BP meds, resume if needed DVT prophylaxis: Lovenox EKTA PICKARD MD Apr 11, 2022 09:24
[2022-04-11] MEDS: SENNOSIDES 8.6 MG (SENOKOT) TAB PO SCH ×2 (09:49→20:47)
[2022-04-11] MEDS: DOCUSATE SODIUM 10 MG/ML 10 ML UDC (COLACE) PEG SCH ×2 (09:49→20:47)
--- NOTE | 2022-04-11 09:49 | Consultation - Surgery ---
MAK CORRALES 04/11/22 0949: History of Present Illness History of Present Illness Patient Consulted On(cortes/time) 04/11/22 09:44 Date Seen by Provider: Apr 11, 2022 Time Seen by Provider: 09:40 History of Present Illness Pt is a 61yo male who is currently hospitalized for hypotension/bradycardia. He has PMH of SCC of the tongue which he received his last dose of immunotherapy for last week. He has had positive cultures from his port on 04/07/22 and today. Pt is trach dependent. Currently feeling well but would like to go home. Denies any nausea/vomiting, sweats/chills or abdominal pain. Allergies and Home Medications Allergies Coded Allergies: metformin (Verified Allergy, Unknown, 04/05/22) Patient Home Medication List Amlodipine Besylate (Amlodipine Besylate) 5 Mg Tablet, 5 MG PO DAILY, (Reported) Entered as Reported by: KUNAL ZACARIAS on 04/06/221135 Last Action: Reviewed Cinnamon Bark (Cinnamon) 500 Mg Capsule, 1,000 MG PO DAILY, (Reported) Entered as Reported by: KUNAL ZACARIAS on 04/06/221135 Last Action: Reviewed Famotidine (Famotidine) 40 Mg Tablet, 40 MG PO BID, (Reported) Entered as Reported by: KUNAL ZACARIAS on 04/06/221135 Last Action: Reviewed Gabapentin (Neurontin) 300 Mg Capsule, 300 MG PO Q8H, (Reported) Entered as Reported by: KUNAL ZACARIAS on 04/06/221135 Last Action: Reviewed Lysine HCl (l-Lysine) 500 Mg Tablet, 250 MG PO DAILY, (Reported) Entered as Reported by: KUNAL ZACARIAS on 04/06/221135 Last Action: Reviewed Ondansetron (Ondansetron Odt) 8 Mg Tab.rapdis, 8 MG PO Q8H PRN for NAUSE A/VOMITING-1ST LINE, (Reported) Entered as Reported by: KUNAL ZACARIAS on 04/06/221135 Last Action: Reviewed Pentoxifylline (Pentoxifylline) 400 Mg Tablet.er, 400 MG PO TIDWM, (Reported) Entered as Reported by: KUNAL ZACARIAS on 04/06/221135 Last Action: Reviewed Pilocarpine (Salagen) 5 Mg Tab, 5 MG PO TID, (Reported) Entered as Reported by: KUNAL ZACARIAS on 04/06/221135 Last Action: Reviewed Vitamin E Mixed (Vitamin E) 1,000 Unit Capsule, 1,000 UNIT PO DAILY, (Reported) Entered as Reported by: KUNAL ZACARIAS on 04/06/221135 Last Action: Reviewed Past Kogmckh-Suqgsl-Dbkuhs Hx Patient Social History Smoking Status: Never a Smoker Have you traveled recently?: No Surgeries History of Surgeries: Yes Surgeries: Tracheostomy (and L bicep surgery) Respiratory History of Respiratory Disorde: No Cardiovascular History of Cardiac Disorders: Yes Cardiac Disorders: Hypotension Neurological History of Neurological Disord: No Reproductive System HIV/AIDS: No Endocrine History of Endocrine Disorders: 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) Endocrine Disorders: Adrenal Disease HEENT History of HEENT Disorders: No Loss of Vision: Denies Cancer Cancer: Oral (SCC of tongue) Blood Transfusions History of Blood Disorders: No Family Medical History Significant Family History: No Pertinent Family Hx, Lung Disease (Lung cancer in sister) Review of Systems-General Constitutional: No chills, No diaphoresis Respiratory: No cough Cardiovascular: No chest pain Gastrointestinal: No abdominal pain, No nausea, No vomiting Psychiatric/Neurological: Denies Headache Physical Exam-General Problems Physical Exam Vital Signs Vital Signs - First Documented 04/05/22 04/05/22 04/05/22 04/05/22 19:36 19:45 19:51 20:15 Temp 36.3 Pulse 56 Resp 10 B/P (MAP) 116/65 Pulse Ox 93 O2 Delivery Trach Collar O2 Flow Rate 28.00 FiO2 28 Capillary Refill : General Appearance: WD/WN, no apparent distress HEENT: PERRL/EOMI Neck: supple Respiratory: lungs clear, normal breath sounds, no respiratory distress, no accessory muscle use Cardiovascular: no murmur, bradycardia Gastrointestinal: normal bowel sounds, non tender, soft Extremities: no pedal edema, normal capillary refill Neurologic/Psychiatric: alert, oriented x 3 Skin: normal color, warm/dry Lymphatic: no adenopathy (anterior/posterior cervical) Data Review Labs Laboratory Tests 04/11/22 05:00: White Blood Count 4.6, Red Blood Count 3.55L, Hemoglobin 11.0L, Hematocrit 33L, Mean Corpuscular Volume 92, Mean Corpuscular Hemoglobin 31, Mean Corpuscular Hemoglobin Concent 34, Red Cell Distribution Width 13.0, Platelet Count 181, Mean Platelet Volume 11.1, Immature Granulocyte % (Auto) 6, Neutrophils (%) (Auto) 20L, Lymphocytes (%) (Auto) 63H, Monocytes (%) (Auto) 9, Eosinophils (%) (Auto) 1, Basophils (%) (Auto) 1, Neutrophils # (Auto) 0.9L, Lymphocytes # (Auto) 2.9, Monocytes # (Auto) 0.4, Eosinophils # (Auto) 0.0, Basophils # (Auto) 0.0, Immature Granulocyte # (Auto) 0.3H, Sodium Level 138, Potassium Level 3.7, Chloride Level 102, Carbon Dioxide Level 24, Anion Gap 12, Blood Urea Nitrogen 7, Creatinine 0.59L, Estimat Glomerular Filtration Rate 109, BUN/Creatinine Ratio 12, Glucose Level 84, Calcium Level 8.5, Corrected Calcium 9.1, Phosphorus Level 2.5, Magnesium Level 1.9, Total Bilirubin 0.4, Aspartate Amino Transf (AST/SGOT) 96H, Alanine Aminotransferase (ALT/SGPT) 117H, Alkaline Phosphatase 169H, Total Protein 6.0L, Albumin 3.2 Microbiology 04/09/22 Blood Culture - Preliminary, Resulted No growth 04/05/22 MRSA Screen - Final, Complete MRSA not isolated Assessment/Plan Assessment/Plan Assessment/Plan MSSA bacteremia of port Blood cultures with MSSA repeat cultures positive still from port with GPC, continue IV abx Echo without evidence of vegetations Continue Ancef Discussed the port removal surgery with the patient, including risks/benefits and patient was agreeable to proceed with port removal tomorrow. Patient to be NPO and hold lovenox. 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 Pt is a 61 yo male with hx of Cancer of the tongue and being treated with Keytruda. Unfortunately, he came in sick and found to have bacteremia. He has Trach. Allergies and Home Medications Allergies Coded Allergies: metformin (Verified Allergy, Unknown, 04/05/22) Patient Home Medication List Home Medication List Reviewed: Yes Amlodipine Besylate (Amlodipine Besylate) 5 Mg Tablet, 5 MG PO DAILY, (Reported) Entered as Reported by: KUNAL ZACARIAS on 04/06/221135 Last Action: Reviewed Cinnamon Bark (Cinnamon) 500 Mg Capsule, 1,000 MG PO DAILY, (Reported) Entered as Reported by: KUNAL ZACARIAS on 04/06/221135 Last Action: Reviewed Famotidine (Famotidine) 40 Mg Tablet, 40 MG PO BID, (Reported) Entered as Reported by: KUNAL ZACARIAS on 04/06/221135 Last Action: Reviewed Gabapentin (Neurontin) 300 Mg Capsule, 300 MG PO Q8H, (Reported) Entered as Reported by: KUNAL ZACARIAS on 04/06/221135 Last Action: Reviewed Lysine HCl (l-Lysine) 500 Mg Tablet, 250 MG PO DAILY, (Reported) Entered as Reported by: KUNAL ZACARIAS on 04/06/221135 Last Action: Reviewed Ondansetron (Ondansetron Odt) 8 Mg Tab.rapdis, 8 MG PO Q8H PRN for NAUSEA/VOMITING-1ST LINE, (Reported) Entered as Reported by: KUNAL ZACARIAS on 04/06/221135 Last Action: Reviewed Pentoxifylline (Pentoxifylline) 400 Mg Tablet.er, 400 MG PO TIDWM, (Reported) Entered as Reported by: KUNAL ZACARIAS on 04/06/221135 Last Action: Reviewed Pilocarpine (Salagen) 5 Mg Tab, 5 MG PO TID, (Reported) Entered as Reported by: KUNAL ZACARIAS on 04/06/221135 Last Action: Reviewed Vitamin E Mixed (Vitamin E) 1,000 Unit Capsule, 1,000 UNIT PO DAILY, (Reported) Entered as Reported by: KUNAL ZACARIAS on 04/06/221135 Last Action: Reviewed Past Verlxrd-Ldhuda-Emxblx Hx Patient Social History Smoking Status: Never a Smoker Alcohol Use?: No Surgeries History of Surgeries: Yes Surgeries: Tracheostomy (and L bicep surgery) Respiratory History of Respiratory Disorde: No Cardiovascular History of Cardiac Disorders: Yes Cardiac Disorders: Hypotension Neurological History of Neurological Disord: No Reproductive System HIV/AIDS: No Genitourinary History of Genitourinary Disor: No Gastrointestinal History of Gastrointestinal Di: No Musculoskeletal History of Musculoskeletal Dis: No Endocrine History of Endocrine Disorders: 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) Endocrine Disorders: Adrenal Disease HEENT History of HEENT Disorders: Yes (Tongue CA, Trach) Loss of Vision: Denies Cancer History of Cancer: Yes Cancer: Oral (SCC of tongue) Psychosocial History of Psychiatric Problem: No Blood Transfusions History of Blood Disorders: No Family Medical History Significant Family History: Lung Disease (Lung cancer in sister) Review of Systems-General Constitutional: No chills, No diaphoresis; weakness EENTM: No blurred vision, No double vision, No mouth swelling, No epistaxis Respiratory: No cough, No dyspnea on exertion Cardiovascular: No chest pain, No palpitations Gastrointestinal: No abdominal pain, No nausea, No vomiting Genitourinary: No dysuria, No frequency, No hematuria Musculoskeletal: No joint pain, No joint swelling Skin: No change in color, No change in hair/nails Psychiatric/Neurological: Denies Depressed, Denies Headache Physical Exam-General Problems Physical Exam General Appearance: WD/WN, no apparent distress Eyes: Bilateral Eye PERRL, Bilateral Eye EOMI HEENT: No scleral icterus (R), No scleral icterus (L), No pale conjunctivae (R), No pale conjunctivae (L) Respiratory: lungs clear, normal breath sounds, no respiratory distress, no accessory muscle use Cardiovascular: no murmur, bradycardia Gastrointestinal: normal bowel sounds, non tender, soft Extremities: no pedal edema, normal capillary refill Neurologic/Psychiatric: alert, oriented x 3 Skin: normal color, warm/dry Lymphatic: no adenopathy (anterior/posterior cervical) Assessment/Plan Assessment/Plan Assessment/Plan MSSA bacteremia of port Blood cultures with MSSA repeat cultures positive still from port with GPC, continue IV abx Echo without evidence of vegetations Continue Ancef Discussed the port removal surgery with the patient, including risks/benefits and patient was agreeable to proceed with port removal tomorrow. Patient to be NPO after MN and hold lovenox. 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 I then reviewed and verified all information documented by the medical student and made modifications to such information, when appropriate. I personally performed a physical exam, medical decision making and then discussed any differences between the notes and made revisions as necessary to create one note. Santo Martinez , 04/11/22 , 13:56 MAK CORRALES Apr 11, 2022 09:49 SANTO MARTINEZ DO Apr 11, 2022 13:54
[2022-04-11] MEDS: ENOXAPARIN 40 MG/0.4 ML (LOVENOX) SYR SC SCH (09:50)
[2022-04-11] MEDS: HYDROCORTISONE 20 MG (CORTEF) TAB PO SCH ×2 (09:50→16:22)
[2022-04-11] MEDS: LACTATED RINGERS 1,000 ML IV SCH ×2 (09:52→22:41)
--- NOTE | 2022-04-11 12:57 | Consultation-Cardiology ---
HPI-Cardiology Cardiology Consultation: Date of Consultation 04/11/22 Date of Admission 04/05/22 Attending Physician Admitting Physician Admitting Physician: Shana Chawla MD Attending Physician: Qi Ventura MD Consulting Physician SHYLA VILLAFUERTE JR, MD HPI: Time Seen by a Provider: 12:51 Chief Complaint: REASON FOR CONSULTATION: Sinus bradycardia. I had the pleasure of seeing Sincere on the medical/surgical unit at [facility] in [place], [place] today. He has a history of squamous cell carcinoma of the tongue that has metastasized to his lung. He presented to an outside hospital with sepsis. He was subsequently transferred to our hospital for further treatment and evaluation. This ultimately diagnosed with methicillin sensitive Staphylococcus aureus bacteremia. However, during his hospitalization he has been having some intermittent bradycardia. As such, a cardiology consultation was requested. He tells me that he had similar episodes of bradycardia when he was at [facility]. It sounds like he underwent a Holter monitor which confirmed the bradycardia and he was told by cardiology at the outside facility that this would just need to be monitored. He states that if he has a coughing spell, sometimes he will get lightheaded. However, when he is breathing normally and not coughing, he denies any lightheadedness. He denies chest discomfort. He does have some dyspnea related to his tracheostomy. He denies paroxysmal nocturnal dyspnea, orthopnea, palpitations, syncope, or ankle edema. Certain portions of this document may have been dictated utilizing voice recognition technology. Inherent to this technology, typographical and grammatical errors may exist. As much as I am diligent to identify and correct these mistakes, some errors may remain in the document. Review of Systems-Cardiology Review of Systems Other comments Review of 10 organ systems is as per the history of present illness, otherwise negative. RIN-Jhppuc-Akqamr Hx Patient Social History Smoking Status: Never a Smoker Have you traveled recently?: No Past Medical History PMH As described under Assessment. Family Medical History Family Medical History: The patient does not know of any family history of premature coronary artery disease in first-degree relatives. Allergies and Home Medications Allergies Coded Allergies: metformin (Verified Allergy, Unknown, 04/05/22) Patient Home Medication List Home Medication List Reviewed: Yes Amlodipine Besylate (Amlodipine Besylate) 5 Mg Tablet, 5 MG PO DAILY, (Reported) Entered as Reported by: KUNAL ZACARIAS on 04/06/221135 Last Action: Reviewed Cinnamon Bark (Cinnamon) 500 Mg Capsule, 1,000 MG PO DAILY, (Reported) Entered as Reported by: KUNAL ZACARIAS on 04/06/221135 Last Action: Reviewed Famotidine (Famotidine) 40 Mg Tablet, 40 MG PO BID, (Reported) Entered as Reported by: KUNAL ZACARIAS on 04/06/221135 Last Action: Reviewed Gabapentin (Neurontin) 300 Mg Capsule, 300 MG PO Q8H, (Reported) Entered as Reported by: KUNAL ZACARIAS on 04/06/221135 Last Action: Reviewed Lysine HCl (l-Lysine) 500 Mg Tablet, 250 MG PO DAILY, (Reported) Entered as Reported by: KUNAL ZACARIAS on 04/06/221135 Last Action: Reviewed Ondansetron (Ondansetron Odt) 8 Mg Tab.rapdis, 8 MG PO Q8H PRN for NAUSEA/VOMITING-1ST LINE, (Reported) Entered as Reported by: KUNAL ZACARIAS on 04/06/221135 Last Action: Reviewed Pentoxifylline (Pentoxifylline) 400 Mg Tablet.er, 400 MG PO TIDWM, (Reported) Entered as Reported by: KUNAL ZACARIAS on 04/06/221135 Last Action: Reviewed Pilocarpine (Salagen) 5 Mg Tab, 5 MG PO TID, (Reported) Entered as Reported by: KUNAL ZACARIAS on 04/06/221135 Last Action: Reviewed Vitamin E Mixed (Vitamin E) 1,000 Unit Capsule, 1,000 UNIT PO DAILY, (Reported) Entered as Reported by: KUNAL ZACARIAS on 04/06/221135 Last Action: Reviewed Exam Vital Signs Vital Signs Date Time Temp Pulse Resp B/P (MAP) Pulse Ox O2 Delivery O2 Flow Rate FiO2 04/11/22 12:25 35 04/11/22 11:24 36.7 18 123/66 (85) 98 Room Air 04/11/22 04:10 3.00 04/08/22 11:50 21 Physical Exam General: Alert. No acute distress. Well nourished and appears stated age. Eye: Extraocular movements are intact. Conjunctivae are clear. There are no xanthelasma. HENT: He has a tracheostomy in place. Atraumatic. Carotid pulsations 2/2 without bruits. Neck: Jugular venous pressure does not appear elevated. No thyromegaly appreciated. Respiratory: Lungs are clear to auscultation. Respirations are non-labored. Breath sounds are equal. Symmetrical chest wall expansion. Cardiovascular: Normal rate. Regular rhythm. No murmur. No gallop. Point of maximal impulse is not appear displaced. Good pulses equal in all extremities. No edema. Gastrointestinal: Soft. Normal bowel sounds. Skin: Skin turgor is normal. There is no pallor. Musculoskeletal: No kyphosis or scoliosis appreciated. Neurologic: Alert and oriented to person, place, time. Cranial nerves 3-12 appear grossly intact. The patient has good motor tone strength in the upper and lower extremities bilaterally. Psychiatric: Cooperative. Appropriate mood & affect. Labs Laboratory Tests Test 04/11/22 05:00 Range/Units White Blood Count 4.6 4.3-11.0 10^3/uL Red Blood Count 3.55 L 4.30-5.52 10^6/uL Hemoglobin 11.0 L 13.3-17.7 g/dL Hematocrit 33 L 40-54 % Mean Corpuscular Volume 92 80-99 fL Mean Corpuscular Hemoglobin 31 25-34 pg Mean Corpuscular Hemoglobin Concent 34 32-36 g/dL Red Cell Distribution Width 13.0 10.0-14.5 % Platelet Count 181 130-400 10^3/uL Mean Platelet Volume 11.1 9.0-12.2 fL Immature Granulocyte % (Auto) 6 % Neutrophils (%) (Auto) 20 L 42-75 % Lymphocytes (%) (Auto) 63 H 12-44 % Monocytes (%) (Auto) 9 0-12 % Eosinophils (%) (Auto) 1 0-10 % Basophils (%) (Auto) 1 0-10 % Neutrophils # (Auto) 0.9 L 1.8-7.8 10^3/uL Lymphocytes # (Auto) 2.9 1.0-4.0 10^3/uL Monocytes # (Auto) 0.4 0.0-1.0 10^3/uL Eosinophils # (Auto) 0.0 0.0-0.3 10^3/uL Basophils # (Auto) 0.0 0.0-0.1 10^3/uL Immature Granulocyte # (Auto) 0.3 H 0.0-0.1 10^3/uL Sodium Level 138 135-145 MMOL/L Potassium Level 3.7 3.6-5.0 MMOL/L Chloride Level 102 98-107 MMOL/L Carbon Dioxide Level 24 21-32 MMOL/L Anion Gap 12 5-14 MMOL/L Blood Urea Nitrogen 7 7-18 MG/DL Creatinine 0.59 L 0.60-1.30 MG/DL Estimat Glomerular Filtration Rate 109 BUN/Creatinine Ratio 12 Glucose Level 84 70-105 MG/DL Calcium Level 8.5 8.5-10.1 MG/DL Corrected Calcium 9.1 8.5-10.1 MG/DL Phosphorus Level 2.5 2.3-4.7 MG/DL Magnesium Level 1.9 1.6-2.4 MG/DL Total Bilirubin 0.4 0.1-1.0 MG/DL Aspartate Amino Transf (AST/SGOT) 96 H 5-34 U/L Alanine Aminotransferase (ALT/SGPT) 117 H 0-55 U/L Alkaline Phosphatase 169 H 40-136 U/L Total Protein 6.0 L 6.4-8.2 GM/DL Albumin 3.2 3.2-4.5 GM/DL Triglycerides Level 275 H <150 MG/DL Cholesterol Level 154 < 200 MG/DL LDL Cholesterol Direct 108 1-129 MG/DL VLDL Cholesterol 55 H 5-40 MG/DL HDL Cholesterol 31 L 40-60 MG/DL Thyroid Stimulating Hormone (TSH) 15.04 H 0.35-4.94 UIU/ML Radiology ECHOCARDIOGRAM (04/07/2022): 1. This is a technically difficult study due to poor acoustic windows. 2. Left ventricle: The cavity size is normal. There is mild concentric hypertrophy. Systolic function is normal. The estimated ejection fraction is 55- 60%. Regional wall motion abnormalities cannot be excluded due to poor endocardial definition. The left ventricular diastolic function is indeterminate. 3. Left atrium: The left atrium is moderately dilated with a volume index ranging from 25-56 mL/m. 4. Aortic valve: There is mild aortic valve sclerosis. 5. Inferior vena cava: The vessel is dilated. The respirophasic diameter changes are in the normal range (greater than or equal to 50%). These findings are consistent with mildly elevated right atrial pressure (8 mmHg). 6. Pulmonary arteries: The estimated pulmonary artery systolic pressure is 42 mmHg assuming a right atrial pressure of 8 mmHg. 7. No obvious large valvular vegetations are identified. However, due to the technically difficult nature of the study, small vegetations might not be seen. Diagnosis/Problems Diagnosis/Problems (1) Sinus bradycardia Assessment & Plan: This seems to be a chronic problem for the patient. For the most part, he seems to be asymptomatic from the bradycardia. He did undergo a Holter monitor [facility] which by his report was unremarkable other than showing the bradycardia. I would just recommend avoiding any AV joy blocking agents. I do not recommend any additional cardiac testing at this time. (2) Primary hypertension Assessment & Plan: He takes amlodipine at home which is currently on hold due to low blood pressures during this admission. (3) Elevated TSH Assessment & Plan: His TSH is mildly elevated. I suspect this has nothing to do with his bradycardia but may need some additional evaluation. I will leave this up to the discretion of the hospitalist. (4) MSSA bacteremia Status: Acute Assessment & Plan: He has a tunneled catheter in place for chemotherapy which is now scheduled to be removed tomorrow. SHYLA VILLAFUERTE JR, MD Apr 11, 2022 12:57
[2022-04-12] VITALS (11 sets, daily range): BP systolic 103–152; BP diastolic 66–89
[2022-04-12] MEDS: ceFAZolin INJECTION 2,000 MG in NS (IVPB) 50 ML IV SCH ×3 (05:13→20:15)
[2022-04-12 05:58] LABS: HEMATOCRIT 33 % (40-54); HEMOGLOBIN 11.3 g/dL (13.3-17.7); MEAN CORPUSCULAR HEMOGLOBIN 31 pg (25-34); MEAN CORPUSCULAR HGB CONC 34 g/dL (32-36); MEAN CORPUSCULAR VOLUME 92 fL (80-99); MEAN PLATELET VOLUME 10.5 fL (9.0-12.2); PLATELET COUNT 207 10^3/uL (130-400)
[2022-04-12 06:21] LABS: POTASSIUM 3.7 MMOL/L (3.6-5.0)
[2022-04-12 06:22] LABS: CALCIUM 8.5 MG/DL (8.5-10.1)
[2022-04-12] MEDS: KCL 20 MEQ TAB (K-DUR) PO SCH (06:25)
[2022-04-12] MEDS: POTASSIUM CL 10MEQ/50ML IVPB 50 ML IV SCH (06:25)
[2022-04-12 06:27] LABS: CREATININE SERUM 0.66 MG/DL (0.60-1.30)
[2022-04-12 06:40] LABS: PHOSPHORUS 2.9 MG/DL (2.3-4.7)
[2022-04-12 06:43] LABS: MAGNESIUM 1.9 MG/DL (1.6-2.4)
[2022-04-12] MEDS: MAGNESIUM 1 GM/100 ML IVPB 100 ML IV SCH (06:45)
[2022-04-12] MEDS: SENNOSIDES 8.6 MG (SENOKOT) TAB PO SCH ×2 (08:11→20:14)
[2022-04-12] MEDS: DOCUSATE SODIUM 10 MG/ML 10 ML UDC (COLACE) PEG SCH ×2 (08:11→20:15)
[2022-04-12] MEDS: HYDROCORTISONE 20 MG (CORTEF) TAB PO SCH ×2 (08:11→14:04)
[2022-04-12] MEDS ORDERED: LACTATED RINGERS 1,000 ML IV PRN (09:15)
--- NOTE | 2022-04-12 09:32 | Cardiology Progress Note ---
Progress Note-Cardiology Events since last exam Date Seen by Provider: Apr 12, 2022 Time Seen by Provider: 09:32 Events since last exam I am following him due to bradycardia. His heart rate dropped into the 30s again overnight. He was asymptomatic with this. He reports that his heart rate has always run in the 50 bpm range. His tunneled infusion port will be removed later today due to the bacteremia. He denies chest discomfort, dyspnea, palpitations, syncope, or ankle edema. Certain portions of this document may have been dictated utilizing voice recognition technology. Inherent to this technology, typographical and grammatical errors may exist. As much as I am diligent to identify and correct these mistakes, some errors may remain in the document. Vitals Last set of Vitals Signs Vital Signs 04/11/22 04/12/22 04/12/22 04:10 11:17 15:57 Temp 36.8 Pulse 40 Resp 20 B/P (MAP) 131/67 (88) Pulse Ox 97 O2 Delivery Room Air O2 Flow Rate 3.00 FiO2 21 Labs Labs Laboratory Tests 04/12/22 05:48 Exam Vital Signs Vital Signs Date Time Temp Pulse Resp B/P (MAP) Pulse Ox O2 Delivery O2 Flow Rate FiO2 04/12/22 15:57 36.8 40 20 131/67 (88) 97 Room Air 04/12/22 11:17 21 04/11/22 04:10 3.00 Physical Exam General: Alert. No acute distress. Eye: No xanthelasma. HENT: Normocephalic. He has a tracheostomy in place. Neck: Jugular venous pressure does not appear elevated. Respiratory: Lungs are clear to auscultation. Respirations are non-labored. Breath sounds are equal. Symmetrical chest wall expansion. Cardiovascular: Normal rate. Regular rhythm. No murmur. No gallop. No edema. Gastrointestinal: Soft. Normal bowel sounds. Skin: Warm. Dry. Neurologic: Alert and oriented to person, place, time. Cranial nerves 3-11 grossly intact. Psychiatric: Cooperative. Appropriate mood & affect. Labs Laboratory Tests Test 04/12/22 05:48 Range/Units White Blood Count 5.0 4.3-11.0 10^3/uL Red Blood Count 3.63 L 4.30-5.52 10^6/uL Hemoglobin 11.3 L 13.3-17.7 g/dL Hematocrit 33 L 40-54 % Mean Corpuscular Volume 92 80-99 fL Mean Corpuscular Hemoglobin 31 25-34 pg Mean Corpuscular Hemoglobin Concent 34 32-36 g/dL Red Cell Distribution Width 13.0 10.0-14.5 % Platelet Count 207 130-400 10^3/uL Mean Platelet Volume 10.5 9.0-12.2 fL Sodium Level 139 135-145 MMOL/L Potassium Level 3.7 3.6-5.0 MMOL/L Chloride Level 105 98-107 MMOL/L Carbon Dioxide Level 23 21-32 MMOL/L Anion Gap 11 5-14 MMOL/L Blood Urea Nitrogen 9 7-18 MG/DL Creatinine 0.66 0.60-1.30 MG/DL Estimat Glomerular Filtration Rate 105 BUN/Creatinine Ratio 14 Glucose Level 93 70-105 MG/DL Calcium Level 8.5 8.5-10.1 MG/DL Phosphorus Level 2.9 2.3-4.7 MG/DL Magnesium Level 1.9 1.6-2.4 MG/DL Diagnosis/Problems Diagnosis/Problems (1) Sinus bradycardia Assessment & Plan: This seems to be a chronic problem for the patient. For the most part, he seems to be asymptomatic from the bradycardia. He did undergo a Holter monitor [facility] which by his report was unremarkable other than showing the bradycardia. I would just recommend avoiding any AV joy blocking agents. I do not recommend any additional cardiac testing at this time. I may consider an event monitor following discharge. (2) Primary hypertension Assessment & Plan: He takes amlodipine at home which is currently on hold due to low blood pressures during this admission. His blood pressures have started to trend upwards. We may need to restart a low dose of Amlodipine if his blood pressures remain elevated. (3) Elevated TSH Assessment & Plan: His TSH is mildly elevated. I suspect this has nothing to do with his bradycardia but may need some additional evaluation. I will leave this up to the discretion of the hospitalist. (4) MSSA bacteremia Status: Acute Assessment & Plan: He has a tunneled catheter in place for chemotherapy which is now scheduled to be removed. SHYLA VILLAFUERTE JR, MD Apr 12, 2022 09:32
--- NOTE | 2022-04-12 09:49 | Progress Note-Pre Operative ---
Pre-Operative Progress Note Date of Available H&P: Apr 11, 2022 Date H&P Reviewed: Apr 12, 2022 Time H&P Reviewed: 09:46 History & Physical: H&P Reviewed, Patient Examed, No changes noted Pre-Operative Diagnosis: Bacteremia, Venous insufficiency SANTO EATON DO Apr 12, 2022 09:49
[2022-04-12] MEDS ORDERED: LIDOCAINE/EPI 2% 1:200,00 (XYLOCAINE) 20 ML VIAL ONE (09:50)
--- NOTE | 2022-04-12 10:04 | Progress Note - Hospitalist ---
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 He was scheduled to receive IV fluids at [place] and was found to be hypotensive and was sent to the ER. He reports feeling weak. He has had fevers. He received his last dose of IV immunotherapy less than one week ago. He denies shortness of breath. He has a chronic cough. He denies chest pain. He denies abdominal pain, nausea, vomiting, and diarrhea. He denies urinary symptoms. Subjective/Events-last exam Pt reports doing ok. Plan is for port removal today. Discussed with him and his SO at bedside plan going forward. I spoke with [facility] who is in agreement with plan as stated below. Patient and SO expressed understanding. Objective Exam Vital Signs Vital Signs Date Time Temp Pulse Resp B/P (MAP) Pulse Ox O2 Delivery O2 Flow Rate FiO2 04/12/22 08:00 36.9 42 18 149/66 (93) 96 Room Air 04/11/22 04:10 3.00 04/08/22 11:50 21 Capillary Refill : General Appearance: No Apparent Distress, Chronically ill Respiratory: Lungs Clear, No Respiratory Distress Cardiovascular: Regular Rate, Rhythm, No Murmur Neurologic/Psychiatric: Alert, Oriented x3 Results/Procedures Lab Laboratory Tests 04/12/22 05:48 Patient resulted labs reviewed. Imaging: Reviewed Imaging Report Assessment/Plan Assessment and Plan Assess & Plan/Chief Complaint MSSA bacteremia Blood cultures with MSSA x2 Repeat cultures from . postive Surgery consulted for port removal today Echo without evidence of vegetations Continue Ancef Discussed with ID at [facility] (Dr Eller) and he agrees with plan to remove port and await negative blood cultures then place PICC for 4 weeks of IV abx Social work consulted for outpatient needs for home health and IV abx Bradycardia Cardiology consulted, appreciate recs Adrenal insufficiency Cortisol level low Continue Hydrocortisone Elevated LFTs Shock liver Continues to improve Hepatitis panel negative Metastatic SCC to the lung Trach dependence Clinically significant, no acute management needs HTN Holding BP meds, resume if needed DVT prophylaxis: Lovenox on hold for port removal EKTA PICKARD MD Apr 12, 2022 10:04
[2022-04-12] MEDS ORDERED: PROPOFOL INJECTION 50 ML IV ONE (10:13)
[2022-04-12] MEDS ORDERED: MIDAZOLAM 2 MG/2 ML (VERSED) VIAL ONE (10:13)
[2022-04-12] MEDS ORDERED: GLYCOPYRROLATE 0.2 MG/ML (ROBINUL) 2 ML VIAL ONE (10:30)
--- NOTE | 2022-04-12 10:51 | Progress Note-Post Operative ---
Post-Operative Progess Note Surgeon (s)/Outreach Consultant (s) Surgeon SANTO EATON DO Outreach Consultant: YUSUF Stern Pre-Operative Diagnosis Bacteremia, Venous insufficiency Post-Operative Diagnosis same Procedure & Operative Findings Date of Procedure 04/12/22 Procedure Performed/Findings PROCEDURE: Removal of port COMPLICATIONS: None. INDICATIONS: The patient is a 61 year-old male who had a port previously placed. Patient has bacteremia and needs to have port removed. The patient was explained risk and benefits of the procedure and wished to proceed with procedure. Consent was signed on the chart. PROCEDURE: The patient was taken to the operating suite and was prepped and draped in sterile fashion. A surgical pause was performed. Local anesthetic was infiltrated to the area around the port. A #15 blade scalpel was used to make an incision directly over previous incision. As I was infiltrating local it started coming out of the hole in his chest wall that I am assuming they used over and over to access the port. Cautery was used to dissect down to the port which was then grasped and then dissected around. The catheter was removed in its entirety. The catheter itself had been cut and placed backwards on the port. The port was then able to be dissected out of the pocket and elevated. The wound was then irrigated with copious amounts of irrigation. Hemostasis had been achieved. Skin was then closed using 4-0 Vicryl, 3 interrupted subcuticular stitches. The area was then washed and dried and Skin Affix placed over the incision. The patient tolerated the procedure well without complication and was taken to recovery room in stable condition. Anesthesia Type IV sedation by Anesthesia Estimated Blood Loss Estimated blood loss (mL): scant Specimens/Packing Specimens Removed coty-cath, sent to micro for culture SANTO EATON DO Apr 12, 2022 10:51
[2022-04-12] MEDS: LACTATED RINGERS 1,000 ML IV SCH (11:41)
--- NOTE | 2022-04-12 11:51 | Anesthesia-General Post-Op ---
MAC Patient Condition Mental Status/LOC: Same as Preop Cardiovascular: Satisfactory Nausea/Vomiting: Absent Respiratory: Satisfactory Pain: Controlled Complications: Absent Post Op Complications Complications None Follow Up Care/Instructions Patient Instructions None needed. Anesthesiology Discharge Order Discharge Order Patient is doing well, no complaints, stable vital signs, no apparent adverse anesthesia problems. No complications reported per nursing. VANE BRASWELL DO Apr 12, 2022 11:51
[2022-04-13] VITALS (7 sets, daily range): BP systolic 121–140; BP diastolic 50–73
[2022-04-13] MEDS: LACTATED RINGERS 1,000 ML IV SCH ×2 (00:51→14:55)
[2022-04-13] MEDS: ceFAZolin INJECTION 2,000 MG in NS (IVPB) 50 ML IV SCH ×3 (05:17→20:09)
[2022-04-13 06:11] LABS: HEMATOCRIT 35 % (40-54); HEMOGLOBIN 11.9 g/dL (13.3-17.7); MEAN CORPUSCULAR HEMOGLOBIN 32 pg (25-34); MEAN CORPUSCULAR HGB CONC 34 g/dL (32-36); MEAN CORPUSCULAR VOLUME 94 fL (80-99); MEAN PLATELET VOLUME 10.6 fL (9.0-12.2); PLATELET COUNT 251 10^3/uL (130-400); WHITE BLOOD COUNT 5.6 10^3/uL (4.3-11.0)
[2022-04-13 06:36] LABS: CALCIUM 8.9 MG/DL (8.5-10.1); CREATININE SERUM 0.72 MG/DL (0.60-1.30); POTASSIUM 3.9 MMOL/L (3.6-5.0)
[2022-04-13 06:38] LABS: PHOSPHORUS 3.1 MG/DL (2.3-4.7)
[2022-04-13] MEDS: POTASSIUM CL 10MEQ/50ML IVPB 50 ML IV SCH (06:39)
[2022-04-13] MEDS: MAGNESIUM 1 GM/100 ML IVPB 100 ML IV SCH (06:40)
[2022-04-13] MEDS: KCL 20 MEQ TAB (K-DUR) PO SCH (06:40)
[2022-04-13] MEDS: DOCUSATE SODIUM 10 MG/ML 10 ML UDC (COLACE) PEG SCH ×2 (09:41→20:09)
[2022-04-13] MEDS: SENNOSIDES 8.6 MG (SENOKOT) TAB PO SCH ×2 (09:41→20:08)
[2022-04-13] MEDS: HYDROCORTISONE 20 MG (CORTEF) TAB PO SCH ×2 (09:41→14:53)
--- NOTE | 2022-04-13 09:53 | Progress Note - Surgery ---
MAK CORRALES 04/13/22 0953: Subjective Date Seen by a Provider: Apr 13, 2022 Time Seen by a Provider: 07:45 Subjective/Events-last exam Pt feels well today following port removal surgery yesterday. He denies any nausea/vomiting, sweats/chills or pain. He says he feels like he is ready to go home. Review of Systems General: No Chills, No Night Sweats Pulmonary: No Cough Gastrointestinal: No: Nausea, Vomiting, Abdominal Pain Objective Exam Vital Signs Date Time Temp Pulse Resp B/P (MAP) Pulse Ox O2 Delivery O2 Flow Rate FiO2 04/13/22 07:58 37.6 43 16 140/70 (93) 97 Room Air 04/13/22 07:00 42 04/13/22 04:05 36.7 42 18 132/50 (77) 96 Room Air 04/13/22 01:00 38 04/13/22 00:43 36.7 41 18 125/72 (89) 94 Room Air 04/12/22 20:32 Room Air 04/12/22 19:55 36.7 46 20 145/69 (94) 96 Room Air 04/12/22 19:00 42 04/12/22 18:34 95 Room Air 04/12/22 15:57 36.8 40 20 131/67 (88) 97 Room Air 04/12/22 15:37 39 04/12/22 12:00 36.6 61 18 152/70 (97) 96 Room Air 04/12/22 11:30 36.6 20 106/70 (82) 93 Room Air 04/12/22 11:30 Room Air 04/12/22 11:20 20 110/70 (83) 93 Room Air 04/12/22 11:17 36.6 42 94 21 04/12/22 11:15 Room Air 04/12/22 11:10 20 116/75 (89) 94 Room Air 04/12/22 11:00 Room Air 04/12/22 11:00 20 112/72 (85) 94 Room Air 04/12/22 10:57 36.6 20 103/89 (94) 94 Room Air 04/12/22 10:57 Room Air I & O 04/13/22 07:00 Intake Total 1600 ml Output Total 3300 ml Balance -1700 ml Capillary Refill : Less Than 3 Seconds General Appearance: No Apparent Distress, Chronically ill HEENT: PERRL/EOMI Neck: Other (trach) Respiratory: Lungs Clear, No Respiratory Distress Cardiovascular: Regular Rate, Rhythm, No Murmur Gastrointestinal: normal bowel sounds, non tender, soft Extremity: No Pedal Edema Neurologic/Psychiatric: Alert, Oriented x3 Skin: Normal Color, Warm/Dry, Other (incision on upper chest clean dry and intact) Results Lab Laboratory Tests 04/13/22 05:40: Phosphorus Level 3.1, Magnesium Level 2.0 04/13/22 05:45: White Blood Count 5.6, Red Blood Count 3.69L, Hemoglobin 11.9L, Hematocrit 35L, Mean Corpuscular Volume 94, Mean Corpuscular Hemoglobin 32, Mean Corpuscular Hemoglobin Concent 34, Red Cell Distribution Width 13.2, Platelet Count 251, Mean Platelet Volume 10.6, Sodium Level 140, Potassium Level 3.9, Chloride Level 105, Carbon Dioxide Level 24, Anion Gap 11, Blood Urea Nitrogen 8, Creatinine 0.72, Estimat Glomerular Filtration Rate 103, BUN/Creatinine Ratio 11, Glucose Level 95, Calcium Level 8.9 Microbiology 04/12/22 Gram Stain - Preliminary, Resulted 04/12/22 Anaerobic Culture, Resulted Pending 04/12/22 Surgical Culture, Resulted Pending 04/09/22 Blood Culture - Preliminary, Resulted No growth 04/05/22 MRSA Screen - Final, Complete MRSA not isolated Assessment/Plan Assessment/Plan Assessment/Plan MSSA bacteremia of port - S/P port removal POD#1 Procedure went well with no complications, patient doing good today. Awaiting blood culture results. Plan is for him to go home if the cultures are negative. Adrenal insufficiency Trach dependence Bradycardia Metastatic SCC to the lung KRISTINAMEETSANTO B DO 04/13/22 1425: Subjective Time Seen by a Provider: 10:28 Subjective/Events-last exam Pt seen and examined, states no new problems. Review of Systems General: No Chills, No Night Sweats Pulmonary: No Cough Gastrointestinal: No: Nausea, Vomiting, Abdominal Pain Objective Exam General Appearance: No Apparent Distress, Chronically ill HEENT: PERRL/EOMI Neck: Other (trach) Respiratory: Lungs Clear, No Accessory Muscle Use, No Respiratory Distress Cardiovascular: Regular Rate, Rhythm, No Murmur Neurologic/Psychiatric: Alert, Oriented x3 Skin: Other (incision on upper chest clean dry and intact) Assessment/Plan Assessment/Plan Assessment/Plan MSSA bacteremia of port - S/P port removal POD#1 Procedure went well with no complications, patient doing good today. Awaiting blood culture results. Plan is for him to go home if the cultures are negative. 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 I then reviewed and verified all information documented by the medical student and made modifications to such information, when appropriate. I personally performed a physical exam, medical decision making and then discussed any differences between the notes and made revisions as necessary to create one note. Santo Martinez , 04/13/22 , 14:25 MAK CORRALES Apr 13, 2022 09:53 SANTO MARTINEZ DO Apr 13, 2022 14:25
[2022-04-13] MEDS ORDERED: LEVO50TA PO (10:50)
[2022-04-13] MEDS ORDERED: CFTR1PB IV (10:50)
[2022-04-13] MEDS ORDERED: HYDR20TA24 PO ×2 (10:50)
--- NOTE | 2022-04-13 10:52 | Progress Note - Hospitalist ---
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 He was scheduled to receive IV fluids at [place] and was found to be hypotensive and was sent to the ER. He reports feeling weak. He has had fevers. He received his last dose of IV immunotherapy less than one week ago. He denies shortness of breath. He has a chronic cough. He denies chest pain. He denies abdominal pain, nausea, vomiting, and diarrhea. He denies urinary symptoms. Subjective/Events-last exam Patient reports feeling well. No complaints. Reemphasized plan to get blood cultures today and if negative at 24 hours tomorrow we will do PICC and arrange for outpatient antibiotics. Objective Exam Vital Signs Vital Signs Date Time Temp Pulse Resp B/P (MAP) Pulse Ox O2 Delivery O2 Flow Rate FiO2 04/13/22 07:58 37.6 43 16 140/70 (93) 97 Room Air 04/12/22 11:17 21 04/11/22 04:10 3.00 Capillary Refill : Less Than 3 Seconds General Appearance: No Apparent Distress, Chronically ill Respiratory: Lungs Clear, No Respiratory Distress Cardiovascular: Regular Rate, Rhythm, No Murmur Neurologic/Psychiatric: Alert, Oriented x3 Results/Procedures Lab Laboratory Tests 04/13/22 05:45 Patient resulted labs reviewed. Imaging: Reviewed Imaging Report Assessment/Plan Assessment and Plan Assess & Plan/Chief Complaint MSSA bacteremia Blood cultures with MSSA x2 Surgery consulted for port removal POD #1 Echo without evidence of vegetations Continue Ancef Discussed with ID at [facility] on 04/12 (Dr Eller) and he agreed with plan to remove port and await negative blood cultures then place PICC for 4 weeks of IV abx Social work consulted for outpatient needs for home health and IV abx Repeat BC today Bradycardia Cardiology consulted, appreciate recs Adrenal insufficiency Cortisol level low Continue Hydrocortisone Elevated LFTs Shock liver Continues to improve Hepatitis panel negative Metastatic SCC to the lung Trach dependence Clinically significant, no acute management needs HTN Holding BP meds, resume if needed Hypothyroidism Synthroid added DVT prophylaxis: EKTA Nguyễn MD Apr 13, 2022 10:52
--- NOTE | 2022-04-13 12:30 | Cardiology Progress Note ---
Progress Note-Cardiology Events since last exam Date Seen by Provider: Apr 13, 2022 Time Seen by Provider: 12:29 Events since last exam I am following him due to bradycardia. He had his tunneled catheter removed on 04/12. He hopes to be discharged home tomorrow. He denies chest pain other than at the site of the port removal, dyspnea at rest, palpitations, syncope, or ankle edema. Certain portions of this document may have been dictated utilizing voice recognition technology. Inherent to this technology, typographical and grammatical errors may exist. As much as I am diligent to identify and correct these mistakes, some errors may remain in the document. Vitals Last set of Vitals Signs Vital Signs 04/11/22 04/12/22 04/13/22 04:10 11:17 15:29 Temp 36.4 Pulse 46 Resp 19 B/P (MAP) 122/67 (85) Pulse Ox 98 O2 Delivery Room Air O2 Flow Rate 3.00 FiO2 21 Labs Labs Laboratory Tests 04/13/22 05:45 Exam Vital Signs Vital Signs Date Time Temp Pulse Resp B/P (MAP) Pulse Ox O2 Delivery O2 Flow Rate FiO2 04/13/22 15:29 36.4 46 19 122/67 (85) 98 Room Air 04/12/22 11:17 21 04/11/22 04:10 3.00 Physical Exam General: Alert. No acute distress. Eye: No xanthelasma. HENT: Normocephalic. He has a tracheostomy in place. Neck: Jugular venous pressure does not appear elevated. Respiratory: Lungs are clear to auscultation. Respirations are non-labored. Breath sounds are equal. Symmetrical chest wall expansion. Cardiovascular: Normal rate. Regular rhythm. No murmur. No gallop. No edema. Gastrointestinal: Soft. Normal bowel sounds. Skin: Warm. Dry. Neurologic: Alert and oriented to person, place, time. Cranial nerves 3-11 grossly intact. Psychiatric: Cooperative. Appropriate mood & affect. Labs Laboratory Tests Test 04/13/22 05:40 04/13/22 05:45 Range/Units Phosphorus Level 3.1 2.3-4.7 MG/DL Magnesium Level 2.0 1.6-2.4 MG/DL White Blood Count 5.6 4.3-11.0 10^3/uL Red Blood Count 3.69 L 4.30-5.52 10^6/uL Hemoglobin 11.9 L 13.3-17.7 g/dL Hematocrit 35 L 40-54 % Mean Corpuscular Volume 94 80-99 fL Mean Corpuscular Hemoglobin 32 25-34 pg Mean Corpuscular Hemoglobin Concent 34 32-36 g/dL Red Cell Distribution Width 13.2 10.0-14.5 % Platelet Count 251 130-400 10^3/uL Mean Platelet Volume 10.6 9.0-12.2 fL Sodium Level 140 135-145 MMOL/L Potassium Level 3.9 3.6-5.0 MMOL/L Chloride Level 105 98-107 MMOL/L Carbon Dioxide Level 24 21-32 MMOL/L Anion Gap 11 5-14 MMOL/L Blood Urea Nitrogen 8 7-18 MG/DL Creatinine 0.72 0.60-1.30 MG/DL Estimat Glomerular Filtration Rate 103 BUN/Creatinine Ratio 11 Glucose Level 95 70-105 MG/DL Calcium Level 8.9 8.5-10.1 MG/DL Diagnosis/Problems Diagnosis/Problems (1) Sinus bradycardia Assessment & Plan: This seems to be a chronic problem for the patient. For the most part, he seems to be asymptomatic from the bradycardia. He did undergo a Holter monitor [facility] which by his report was unremarkable other than showing the bradycardia. I would just recommend avoiding any AV joy blocking agents. I do not recommend any additional cardiac testing at this time. I may consider an event monitor following discharge but I will arrange this through my office. He does not need to have a monitor when he is discharged. (2) Primary hypertension Assessment & Plan: He takes amlodipine at home which is currently on hold due to low blood pressures during this admission. His blood pressures have started to trend upwards. He may need to restart a low dose of Amlodipine if his blood pressures remain elevated. (3) Elevated TSH Assessment & Plan: His TSH is mildly elevated. I suspect this has nothing to do with his bradycardia but may need some additional evaluation. I will leave this up to the discretion of the hospitalist. (4) MSSA bacteremia Status: Acute Assessment & Plan: He has a tunneled catheter in place for chemotherapy which was extracted on 04/12. SHYLA VILLAFUERTE JR, MD Apr 13, 2022 12:30
--- NOTE | 2022-04-13 14:04 | Physical Therapy Progress Note ---
Therapy Progress Note Patient evaluated by PT upon admission and was dismissed due to independent PLOF. Patient remains independent with all gross motor skills safely and does not require skilled PT intervention. Patient donned shoes independently by bending over to pick them off the floor. Patient ambulate 600' independently in hallway with PT. No skilled PT indicated. 1 visit/DC MARIO ALBERTO LYNN PT Apr 13, 2022 14:04
[2022-04-14 03:06] VITALS: BP 108/64
[2022-04-14] MEDS: LACTATED RINGERS 1,000 ML IV SCH (03:32)
[2022-04-14] MEDS: ceFAZolin INJECTION 2,000 MG in NS (IVPB) 50 ML IV SCH (05:37)
[2022-04-14 05:47] LABS: HEMATOCRIT 34 % (40-54); HEMOGLOBIN 11.2 g/dL (13.3-17.7); MEAN CORPUSCULAR HEMOGLOBIN 31 pg (25-34); MEAN CORPUSCULAR HGB CONC 33 g/dL (32-36); MEAN CORPUSCULAR VOLUME 94 fL (80-99); MEAN PLATELET VOLUME 10.4 fL (9.0-12.2); PLATELET COUNT 247 10^3/uL (130-400); WHITE BLOOD COUNT 4.6 10^3/uL (4.3-11.0)
[2022-04-14 06:03] LABS: POTASSIUM 3.5 MMOL/L (3.6-5.0)
[2022-04-14 06:04] LABS: CALCIUM 8.7 MG/DL (8.5-10.1)
[2022-04-14 06:08] LABS: CREATININE SERUM 0.59 MG/DL (0.60-1.30)
[2022-04-14] MEDS: POTASSIUM CL 10MEQ/50ML IVPB 50 ML IV SCH (06:11)
[2022-04-14] MEDS: KCL 20 MEQ TAB (K-DUR) PO SCH (06:14)
[2022-04-14] MEDS: MAGNESIUM 1 GM/100 ML IVPB 100 ML IV SCH (06:27)
[2022-04-14] MEDS ORDERED: KCL 20 MEQ TAB (K-DUR) PO NR (06:30)
[2022-04-14] MEDS ORDERED: LEVOTHYROXINE 50 MCG (LEVOTHROID) TAB PO SCH (06:30)
[2022-04-14 07:58] LABS: PHOSPHORUS 2.9 MG/DL (2.3-4.7)
[2022-04-14 08:00] LABS: MAGNESIUM 1.9 MG/DL (1.6-2.4)
[2022-04-14 08:11] VITALS: BP 151/70
[2022-04-14] MEDS: ENOXAPARIN 40 MG/0.4 ML (LOVENOX) SYR SC SCH (08:13)
[2022-04-14] MEDS: HYDROCORTISONE 20 MG (CORTEF) TAB PO SCH (08:13)
[2022-04-14] MEDS: SENNOSIDES 8.6 MG (SENOKOT) TAB PO SCH (08:13)
[2022-04-14] MEDS: DOCUSATE SODIUM 10 MG/ML 10 ML UDC (COLACE) PEG SCH (09:00)
--- NOTE | 2022-04-14 09:53 | Progress Note - Surgery ---
Subjective Date Seen by a Provider: Apr 14, 2022 Time Seen by a Provider: 08:52 Subjective/Events-last exam Pt doing well this morning. Denies any nausea/vomiting, sweats/chills or abdominal pain. He states he is ready to go home. Review of Systems General: No Chills, No Night Sweats Pulmonary: No Cough Gastrointestinal: No: Nausea, Vomiting, Abdominal Pain Objective Exam Vital Signs Date Time Temp Pulse Resp B/P (MAP) Pulse Ox O2 Delivery O2 Flow Rate FiO2 04/14/22 08:11 36.8 44 18 151/70 (97) 99 Room Air 04/14/22 07:21 Room Air 04/14/22 07:00 36 04/14/22 03:06 36.2 43 18 108/64 (79) 97 Room Air 04/14/22 01:00 35 04/13/22 23:21 36.9 41 18 125/73 (90) 96 Room Air 04/13/22 20:53 Room Air 04/13/22 20:03 36.9 42 18 136/71 (92) 96 Room Air 04/13/22 19:05 Room Air 04/13/22 19:00 45 04/13/22 15:29 36.4 46 19 122/67 (85) 98 Room Air 04/13/22 13:00 45 04/13/22 11:57 36.7 46 16 121/68 (85) 99 Room Air I & O 04/14/22 07:00 Intake Total 1860 ml Output Total 3140 ml Balance -1280 ml Capillary Refill : Less Than 3 Seconds General Appearance: No Apparent Distress, Chronically ill HEENT: PERRL/EOMI Neck: Other (trach) Respiratory: Lungs Clear, No Accessory Muscle Use, No Respiratory Distress Cardiovascular: Regular Rate, Rhythm, No Murmur Gastrointestinal: normal bowel sounds, non tender, soft Extremity: No Pedal Edema Neurologic/Psychiatric: Alert, Oriented x3 Skin: Normal Color, Warm/Dry, Other (incision on upper chest clean dry and intact) Results Lab Laboratory Tests 04/14/22 05:36: White Blood Count 4.6, Red Blood Count 3.58L, Hemoglobin 11.2L, Hematocrit 34L, Mean Corpuscular Volume 94, Mean Corpuscular Hemoglobin 31, Mean Corpuscular Hemoglobin Concent 33, Red Cell Distribution Width 13.1, Platelet Count 247, Mean Platelet Volume 10.4, Sodium Level 139, Potassium Level 3.5L, Chloride Level 107, Carbon Dioxide Level 22, Anion Gap 10, Blood Urea Nitrogen 8, Creatinine 0.59L, Estimat Glomerular Filtration Rate 109, BUN/Creatinine Ratio 14, Glucose Level 98, Calcium Level 8.7, Phosphorus Level 2.9, Magnesium Level 1.9 Microbiology 04/12/22 Gram Stain - Preliminary, Resulted 04/12/22 Anaerobic Culture, Resulted Pending 04/12/22 Surgical Culture - Preliminary, Resulted No growth 04/09/22 Blood Culture - Preliminary, Resulted No growth 04/05/22 MRSA Screen - Final, Complete MRSA not isolated Assessment/Plan Assessment/Plan Assessment/Plan MSSA bacteremia of port - S/P port removal POD#2 No futher surgical management necessary. Pt should be able to go home today pending a negative blood culture. Adrenal insufficiency Trach dependence Bradycardia Metastatic SCC to the lung MAK CORRALES Apr 14, 2022 09:53
--- NOTE | 2022-04-14 11:01 | D/C HH Face to Face Order ---
D/C Face to Face Orders Instructions for Patient Via [facility], Patient Instructions/FollowUp: Please continue to take your medications as written. Please follow up with your primary care doctor to follow up this hospital stay. Physician to follow Patient: Dr Reddy Discharge Diet for Home: Dysphagia Patient Data-Allergies,Ht & Wt Patient Allergies: Coded Allergies: metformin (Verified Allergy, Unknown, 04/05/22) Home Health Need/Face to Face Date of Face to Face: Apr 13, 2022 Clinical Findings: Immune-compromised I have seen Pt [id number]: Yes Discharged To: Home Diagnosis/Conditions: Sepsis from MSSA bacteremia Patient is Homebound due to: CognItive deficits Homebound Status Due to the above stated illness, injury or surgical procedure (medical condition or diagnosis) and associated clinical findings, the patient is homebound because of his/her inability to leave home except with aid of a supportive device and/or person AND leaving the home requires a considerable and taxing effort or is medically contraindicated. Pt req the following assistanc: Aid of another person Home Health Nursing Orders Home Health Services Order: Nursing Services Daily IV abx and teaching with [facility] Home Health Infusion Therapy Line Start Date: Apr 12, 2022 Therapy Orders Therapy Specific Orders: Increase strength/endurance, Restore ROM Certify Stmt I certify that this patient is under my care and that I, a nurse practitioner or a physician; a diet assistant working with me, had a face to face encounter that - meets the physician face to face encounter requirements with this patient as dated. EKTA PICKARD MD Apr 13, 2022 12:48
--- NOTE | 2022-04-14 11:02 | Discharge Summary ---
Diagnosis/Chief Complaint Date of Admission Apr 05, 2022 at 19:31 Date of Discharge Discharge Date: Apr 13, 2022 Admission Diagnosis Septic shock Primary Care Discharge Diagnosis (1) Sinus bradycardia Assessment & Plan: This seems to be a chronic problem for the patient. For the most part, he seems to be asymptomatic from the bradycardia. He did undergo a Holter monitor which by his report was unremarkable other than showing the bradycardia. I would just recommend avoiding any AV joy blocking agents. I do not recommend any additional cardiac testing at this time. I may consider an event monitor following discharge but I will arrange this through my office. He does not need to have a monitor when he is discharged. (2) Primary hypertension Assessment & Plan: He takes amlodipine at home which is currently on hold due to low blood pressures during this admission. His blood pressures have started to trend upwards. He may need to restart a low dose of Amlodipine if his blood pressures remain elevated. (3) Elevated TSH Assessment & Plan: His TSH is mildly elevated. I suspect this has nothing to do with his bradycardia but may need some additional evaluation. I will leave this up to the discretion of the hospitalist. (4) MSSA bacteremia Status: Acute Assessment & Plan: He has a tunneled catheter in place for chemotherapy which was extracted on 04/12. Discharge Summary Discharge Physical Exam Allergies: Coded Allergies: metformin (Verified Allergy, Unknown, 04/05/22) Vitals & I&Os Vital Signs Date Time Temp Pulse Resp B/P (MAP) Pulse Ox O2 Delivery O2 Flow Rate FiO2 04/14/22 11:15 36.6 42 18 149/79 (102) 98 Room Air 04/12/22 11:17 21 04/11/22 04:10 3.00 General Appearance: No Apparent Distress, Chronically ill Cardiovascular: Regular Rate, Rhythm, No Murmur Neurologic/Psychiatric: Alert, Oriented x3 Hospital Course Patient was admitted to the hospital secondary to sepsis from MSSA bacteremia. He received IV antibiotics and repeat blood cultures were done which remained positive. Due to this it was recommended that his port be removed. I discussed the case with infectious disease at who agreed with port removal and 4 weeks of IV antibiotics. Dr. Martinez was consulted and port was removed on April 12. He had repeat blood cultures 24 hours later that remained negative. A PICC was placed and he was set up for home health with IV antibiotics. I called and updated his primary care physician Dr. Reddy who he will be establishing with on April 18. He was discharged home at his request in stable improved condition to follow-up as mentioned above with Dr. Reddy. Labs (last 24 hrs) Laboratory Tests 04/14/22 05:36: White Blood Count 4.6, Red Blood Count 3.58L, Hemoglobin 11.2L, Hematocrit 34L, Mean Corpuscular Volume 94, Mean Corpuscular Hemoglobin 31, Mean Corpuscular Hemoglobin Concent 33, Red Cell Distribution Width 13.1, Platelet Count 247, Mean Platelet Volume 10.4, Sodium Level 139, Potassium Level 3.5L, Chloride Level 107, Carbon Dioxide Level 22, Anion Gap 10, Blood Urea Nitrogen 8, Creatinine 0.59L, Estimat Glomerular Filtration Rate 109, BUN/Creatinine Ratio 14, Glucose Level 98, Calcium Level 8.7, Phosphorus Level 2.9, Magnesium Level 1.9 Microbiology 04/12/22 Gram Stain - Preliminary, Resulted 04/12/22 Anaerobic Culture, Resulted Pending 04/12/22 Surgical Culture - Preliminary, Resulted No growth 04/09/22 Blood Culture - Preliminary, Resulted No growth 04/05/22 MRSA Screen - Final, Complete MRSA not isolated Patient resulted labs reviewed. Pending Labs Laboratory Tests 04/14/22 05:36: White Blood Count 4.6, Red Blood Count 3.58, Hemoglobin 11.2, Hematocrit 34, Mean Corpuscular Volume 94, Mean Corpuscular Hemoglobin 31, Mean Corpuscular Hemoglobin Concent 33, Red Cell Distribution Width 13.1, Platelet Count 247, Mean Platelet Volume 10.4, Sodium Level 139, Potassium Level 3.5, Chloride Level 107, Carbon Dioxide Level 22, Anion Gap 10, Blood Urea Nitrogen 8, Creatinine 0.59, Estimat Glomerular Filtration Rate 109, BUN/Creatinine Ratio 14, Glucose Level 98, Calcium Level 8.7, Phosphorus Level 2.9, Magnesium Level 1.9 Imaging: Reviewed Imaging Report Discussion & Recommendations Discharge Planning: >30 minutes discharge planning Discharge Home Medications: Active Scripts Active Ceftriaxone (Ceftriaxone Sod) 1 Gram Soln 1 Gm IV DAILY Synthroid (Levothyroxine Sodium) 50 Mcg Tablet 50 Mcg PO DAILY Hydrocortisone 20 Mg Tablet 10 Mg PO DAILY@1500 Hydrocortisone 20 Mg Tablet 20 Mg PO DAILY@0900 Reported Vitamin E (Vitamin E Mixed) 1,000 Unit Capsule 1,000 Unit PO DAILY Cinnamon (Cinnamon Bark) 500 Mg Capsule 1,000 Mg PO DAILY TAKES 2 (500MG) TABS l-Lysine (Lysine HCl) 500 Mg Tablet 250 Mg PO DAILY TAKES OF A TAB Amlodipine Besylate 5 Mg Tablet 5 Mg PO DAILY LAST FILLED 11-02-2021 #90/90 DAY SUPPLY Pentoxifylline 400 Mg Tablet.er 400 Mg PO TIDWM LAST FILLED 11-22-2021 #270/90 DAY SUPPLY Neurontin (Gabapentin) 300 Mg Capsule 300 Mg PO Q8H Salagen (Pilocarpine) 5 Mg Tab 5 Mg PO TID Ondansetron Odt (Ondansetron) 8 Mg Tab.rapdis 8 Mg PO Q8H PRN Famotidine 40 Mg Tablet 40 Mg PO BID Instructions to patient/family Please see electronic discharge instructions given to patient. EKTA PICKARD MD Apr 14, 2022 11:02
[2022-04-14 11:15] VITALS: BP 149/79
[2022-04-14 13:46] VITALS: BP 149/79
== END 2022-04-14 13:30 | disposition home health service (06) | DRG 314 ==
LOC: ICU 19:31 → 4TH 04-07 13:30
PROVIDERS: ADMIT Internal Medicine; ATTEND Family Medicine
PROC: 5A1935Z Respiratory Ventilation, Less than 24 Consecutive Hours (ICD-10-PCS; 2022-04-05)
PROC: 0JPT0XZ Removal of Tunneled Vascular Access Device from Trunk Subcutaneous Tissue and Fascia, Open Approach (ICD-10-PCS; principal; 2022-04-12 10:21)
DX: T80.211A Bloodstream infection due to central venous catheter, initial encounter (principal); A41.01 Sepsis due to Methicillin susceptible Staphylococcus aureus; R65.21 Severe sepsis with septic shock; K72.00 Acute and subacute hepatic failure without coma; C78.02 Secondary malignant neoplasm of left lung; E27.3 Drug-induced adrenocortical insufficiency; C78.01 Secondary malignant neoplasm of right lung; C02.9 Malignant neoplasm of tongue, unspecified; Z93.0 Tracheostomy status; Z93.1 Gastrostomy status; E83.39 Other disorders of phosphorus metabolism; I10 Essential (primary) hypertension; D64.9 Anemia, unspecified; R00.1 Bradycardia, unspecified; R73.9 Hyperglycemia, unspecified; K21.9 Gastro-esophageal reflux disease without esophagitis; Z88.8 Allergy status to other drugs, medicaments and biological substances; T45.1X5A Adverse effect of antineoplastic and immunosuppressive drugs, initial encounter; T38.0X5A Adverse effect of glucocorticoids and synthetic analogues, initial encounter
CPT/HCPCS: 36415; 36569; 71045; 74230; 76937; 80048; 80053; 80061; 80074; 82533; 82947; 83735; 84100; 84145; 84443; 85007; 85025; 85027; 87040; 87070; 87075; 87077; 87081; 87186; 87205; 93005; 93306; 94760